=== PATIENT | female | born 1950 | race Caucasian/White ===

== ENCOUNTER 2016-11-02 08:31 | Inpatient (IN) | payer OTHER ==
[2016-09-26 09:02] VITALS: BMI 42.0
--- NOTE | 2016-09-26 09:36 | PAT Medication Instructions ---
Service Date Sep 26, 2016. Current Home Medication List Albuterol Sulfate (Proair Hfa), 2 PUFFS INH QID PRN for SOB/Wheezing Allopurinol (Zyloprim *), 300 MG PO QPM Amoxicillin (Amoxil), 500 MG PO UD PRN for PRIOR TO DENTAL WORK Divalproex Sodium Extended Rel (Depakote Extended Rel *), 1,000 MG PO DHS Fluticasone Prop/Salmeterol (Advair Diskus 500-50 Mcg/Dose), 1 INHA INH BID PRN for SOB/Wheezing Furosemide (Lasix), 40 MG PO QAM Lisinopril (Zestril), 2.5 MG PO QAM Metformin Hcl (Glucophage), 1,000 MG PO QPM Metformin Hcl (Glucophage), 500 MG PO qam/lunch Montelukast Sodium (Singulair), 10 MG PO QAM Oxygen (Oxygen), 2.5 LITERS NA HS Sertraline (Zoloft), 25 MG PO QPM Simvastatin (Zocor), 20 MG PO HS Trazodone Hcl (Trazodone), 100 MG PO HS [oxybutynin], 5 MG PO QAM Medication Instructions For Your Scheduled Surgery - Hold the following medications 48 hours prior to surgery: Metformin Hcl (Glucophage), - Hold the following medications the morning of surgery: Oxybutynin 5 MG PO QAM Furosemide (Lasix), 40 MG PO QAM Lisinopril (Zestril), 2.5 MG PO QAM Amoxicillin (Amoxil), 500 MG PO UD PRN for PRIOR TO DENTAL WORK - Take the following medications the morning of surgery with a sip of water: Montelukast Sodium (Singulair), 10 MG PO QAM Fluticasone Prop/Salmeterol (Advair Diskus 500-50 Mcg/Dose), 1 INHA INH BID PRN for SOB/Wheezing Albuterol Sulfate (Proair Hfa), 2 PUFFS INH QID PRN for SOB/Wheezing (bring with you to hospital on day of surgery) - Take the following medications as scheduled the night before surgery: Oxygen (Oxygen), 2.5 LITERS NA HS Sertraline (Zoloft), 25 MG PO QPM Simvastatin (Zocor), 20 MG PO HS Trazodone Hcl (Trazodone), 100 MG PO HS Fluticasone Prop/Salmeterol (Advair Diskus 500-50 Mcg/Dose), 1 INHA INH BID PRN for SOB/Wheezing Divalproex Sodium Extended Rel (Depakote Extended Rel *), 1,000 MG PO DHS Allopurinol (Zyloprim *), 300 MG PO QPM Albuterol Sulfate (Proair Hfa), 2 PUFFS INH QID PRN for SOB/Wheezing If you have any questions please call us at [phone] or [phone] ( [place]) or [phone]
[2016-09-26 10:15] LABS: COMPLETE YES; EOS % 2.8 %; HEMATOCRIT 42.3 % (37-47); LYMPH ABS # 3.36 K/uL (1.2-3.4); MEAN CELL VOLUME 88.5 fL (80-100); MEAN CORPUSCULAR HEMOGLOBIN 28.2 pg (25-34); MEAN CORPUSCULAR HGB CONC 31.9 g/dl (32-36); MEAN PLATELET VOLUME 9.2 fL (7.4-10.4); MONO % 5.9 %; NEUT % 55.3 %; PLATELET COUNT 252 K/uL (130-400); RED BLOOD COUNT 4.78 M/uL (4.2-5.4)
[2016-09-26 10:23] LABS: INR 0.9 (0.9-1.1); PROTHROMBIN TIME (PATIENT) 9.8 SECONDS (9.0-12.0)
[2016-09-26 10:39] LABS: BUN/CREATININE RATIO 31.2 (10-20); C-REACTIVE PROTEIN 2.88 mg/dl (0-0.29); CALCIUM 9.5 mg/dl (8.5-10.1); CREATININE 0.63 mg/dl (0.60-1.20)
[2016-09-26 11:21] LABS: ESTIMATED AVERAGE GLUCOSE 157 mg/dl; HA1C FLAG Normal (Normal)
--- NOTE | 2016-10-28 01:14 | HISTORY & PHYSICAL EXAMINATION ---
DATE OF ADMISSION: 11/02/2016 CHIEF COMPLAINT: Right knee pain and discomfort. HISTORY OF PRESENT ILLNESS: A 66-year-old female who is now a little over 5 years out from left knee replacement who presents for surgical treatment of her right knee. She has got a long history of right knee pain and discomfort, describes it has gotten worse over the past several years. A very minimal response to conservative care. She is tired of limping. The more she walks, the more she limps. Pain is mostly medial, but somewhat globally. She is tired of conservative care and would like to have her right knee replaced. She is very happy with the left knee. PAST MEDICAL HISTORY: Significant for: 1. Sleep apnea with oxygen use at nighttime. 2. Anxiety/depression. 3. Diabetes. 4. Obesity with a BMI of 42. PAST SURGICAL HISTORY: Include: 1. Left knee replacement done in 09/29/2011. 2. Back surgery by Dr. Friend. ALLERGIES: BACTRIM. CURRENT MEDICINES: Include: 1. Metformin half tablet at breakfast and half tablet at night and hold tablet with supper. Tablets are 1000 mg. 2. Lasix 40 mg a day. 3. Zestril 2.5 mg a day. 4. Singulair 10 mg a day. 5. Allopurinol 300 mg at night. 6. Zoloft 25 mg a day. 7. Depakote 15 mg tablets 2 at bedtime. 8. Trazodone 100 mg at night. 9. Zocor 20 mg at night. 10. ProAir inhaler twice a day. 11. Advair Diskus p.r.n. 12. Oxygen at night time. SOCIAL HISTORY: A 66-year-old female. She is . FAMILY HISTORY: Noncontributory. REVIEW OF SYSTEMS: Significant for diabetes. Denies any current chest pain or shortness of breath. She does use oxygen at night time. She has sleep apnea. PHYSICAL EXAMINATION: GENERAL: Reveals a pleasant elderly female. She looks in reasonably good health. HEENT: Benign. NECK: Supple. No lymphadenopathy. LUNGS: Clear to auscultation. HEART: Regular rate and rhythm. ABDOMEN: Soft, nontender, nondistended. EXTREMITIES: Grossly neurovascularly intact except as follows: Examination of the right knee reveals the patient walks independently with a slight bit of a limp. She has got varus alignment to her knee. She has got bony hypertrophy medially and tenderness over the medial joint line. Range of motion 5-120. No instability. Examination of left knee reveals well-healed incision. Range of motion 0-120. No instability. X-RAYS: X-rays of the right knee revealed advanced right knee medial compartment DJD. She has got near complete loss of medial joint space. She has got osteophytes off the medial femoral condyle and medial tibial plateau. X-rays left knee - well positioned total knee replacement. No signs of problems. No loosening or wear. ASSESSMENT: A 66-year-old white female, 5 years out from a left knee replacement with fairly advanced right knee degenerative joint disease. She has failed conservative treatment and not initiated any further conservative care and would like to have her right knee replaced. PLAN: We will take her to the operating room and do a right total knee replacement. The risks and benefits of this procedure were explained to the patient including but not limited to DVT, PE, , infection, neurological injury, vascular injury, bleeding problem, pain, limited range of motion, stiffness, failure to relieve symptoms, incomplete relief of symptoms, need for further surgery in the future, fracture, leg length inequality, nerve palsy, etc. The patient understands and desires to proceed. Informed consent was obtained. She is planning to be discharged to home using [facility] home health program. She knows to stop her metformin 2 days preop. She will need to use oxygen at night time. MTDD
[2016-11-02] VITALS (8 sets, daily range): BP systolic 116–179; BP diastolic 62–87; PULSE 65–93; TEMP 36.3–36.7; O2SAT 2–97; Ht 157.5 cm; Wt 104.1 kg
[~2016-11-02] VITALS: Ht 157.5 cm; Wt 104.1 kg
[~2016-11-02 08:31] MED LIST: ACETAMINOPHEN 500 MG TAB PO SCH; ADVIN50050 INH; ALBU1AER9 INH; ALL300 PO; AMOX500C3 PO; BUPIVACAINE 0.25% 30 ML VIAL ONE; BUPIVACAINE 0.5 % 5 MG/1 ML PF 10ML VIAL ONE; BUPIVACAINE LIPOSOME 266 MG, BUPIVACAINE/EPINEPHRINE INJ 50 ML, SODIUM CHLORIDE 0.9% PF... INFIL SCH; CEFAZOLIN 2000 MG/60 ML D5W 60 ML IV SCH; DPKSR500 PO; FAMOTIDINE 20 MG TAB PO SCH; FRS/40 PO; GABAPENTIN 300 MG CAP PO SCH; GLC/500 PO; LACTATED RINGER'S 1000ML 1,000 ML IV SCH; LACTATED RINGER'S 1000ML 500 ML IV ONE; LACTATED RINGER'S 1000ML IV SCH; LISI-729 PO; METOCLOPRAMIDE HCL 10 MG TAB PO SCH; MONT1TAB3 PO; OXGN; SCOPOLAMINE 1.5 MG TDSY TD SCH; SERT25TA PO; SIMV20TA2 PO; TRANEXAMIC ACID INJ 1,000 MG in SODIUM CHLORIDE 0.9% 100ML 100 ML IV SCH; TRAZ100T29 PO; oxybutynin PO
--- NOTE | 2016-11-02 09:11 | History & Physical Bridge Note ---
H&P Re-Evaluation Bridge Note: I have examined the patient, reviewed the History & Physical and in the interval since the performance of the History & Physical I have noted the following changes of clinical significance: No changes noted
[2016-11-02] MEDS ORDERED: MEPERIDINE HCL 25 MG/ML CARP IV PRN (10:15)
[2016-11-02] MEDS ORDERED: FENTANYL CITRATE INJ 50 MCG/1 ML 2 ML VIAL IV PRN (10:15)
[2016-11-02] MEDS ORDERED: HYDROmorphone INJ 1 MG/ML SYR IV PRN (10:15)
[2016-11-02] MEDS ORDERED: EpHEDrine SULFATE INJ 50 MG/ML AMP IV PRN (10:15)
[2016-11-02] MEDS ORDERED: ATROPINE SULFATE 0.1 MG/ML 5ML SYR IV PRN (10:15)
[2016-11-02] MEDS ORDERED: LABETALOL HCL IV 5 MG/ML 20ML IV PRN (10:15)
[2016-11-02] MEDS ORDERED: ONDANSETRON INJ 2 MG/ML 2 ML VIAL IV PRN ×2 (10:15→13:00)
[2016-11-02] MEDS ORDERED: MIDAZOLAM HCL 1 MG/ML 2ML VIAL ONE (10:26)
[2016-11-02] MEDS ORDERED: BUPIVACAINE/EPINEPHRINE 0.25% 1:200,000 30 ML VIAL ONE (10:54)
[2016-11-02] MEDS ORDERED: SODIUM CHLORIDE 0.9% PF 50 ML VIAL ONE (10:54)
[2016-11-02] MEDS ORDERED: BACITRACIN 50000 UNIT VIAL ONE (10:54)
[2016-11-02] MEDS ORDERED: BUPIVACAINE LIPOSOME 1/3% 266 MG/20 ML VIAL INFIL ONE (10:54)
[2016-11-02] MEDS ORDERED: PROPOFOL IV EMULSION 10 MG/ML 20 ML VIAL IV ONE (12:05)
[2016-11-02] MEDS ORDERED: LIDOCAINE HCL 2% 2 ML VIAL (20MG/ML) ONE (12:05)
[2016-11-02] MEDS ORDERED: EpHEDrine SULFATE 50MG/5ML SYR ONE (12:06)
--- NOTE | 2016-11-02 12:46 | [facility] Post Operative Brief Note ---
Immediate Operative Summary Operative Date Nov 02, 2016. Pre-Operative Diagnosis Advanced Right Knee Degenerative Joint Disease Post-Operative Diagnosis Advanced Right Knee Degenerative Joint Disease Procedure(s) Performed Right Total Knee Arthroplasty, Cemented Surgeon Dr. Mooney Gluing Machine Operator Surgeon(s) Valdemar Laughlin PA-C Estimated Blood Loss 50 mL Findings Right Knee DJD Fluids (cc crystalloids) 2000 cc Specimens A: Right Knee Bone and Tissue Drains None Anesthesia Spinal Complication(s) None Disposition Recovery Room / PACU
[2016-11-02] MEDS ORDERED: ZOLPIDEM TARTRATE 5 MG TAB PO PRN (13:00)
[2016-11-02] MEDS ORDERED: MoRPHine SULFATE 2 MG/ML CARP IV PRN (13:00)
[2016-11-02] MEDS ORDERED: FLUTICASONE/SALMETEROL (ADVAIR) 500/50 INH 14 PUFF INH PRN (13:00)
[2016-11-02] MEDS ORDERED: GLUCOSE 10 TABS/TUBE PO PRN (13:00)
[2016-11-02] MEDS ORDERED: GLUCOSE 40% GEL 15 GM TUBE PO PRN (13:00)
[2016-11-02] MEDS ORDERED: DEXTROSE 50% 50 ML SYR IV PRN (13:00)
[2016-11-02] MEDS ORDERED: METOCLOPRAMIDE HCL INJ 5 MG/ML 2 ML VIAL IV PRN (13:00)
[2016-11-02] MEDS ORDERED: GLUCAGON FOR INJ 1 MG VIAL SQ PRN (13:00)
[2016-11-02] MEDS ORDERED: ALBUTEROL HFA 8 GM INHALER INH PRN (13:00)
[2016-11-02] MEDS ORDERED: BISACODYL 10 MG SUPP PR PRN (13:00)
[2016-11-02] MEDS ORDERED: MAGNESIUM HYDROXIDE SUSP 30 ML UDC PO PRN (13:00)
[2016-11-02] MEDS ORDERED: ALUMINUM/MAGNESIUM/SIMETH (MAALOX MAX) 30 ML UDC PO PRN (13:00)
--- NOTE | 2016-11-02 13:37 | OPERATIVE REPORT ---
DATE OF OPERATION: 11/02/2016 SURGEON: Pollo Mooney MD RIVETING MACHINE OPERATOR: KASEY Schulte PREOPERATIVE DIAGNOSIS: Right knee degenerative joint disease. POSTOPERATIVE DIAGNOSIS: Same. PROCEDURE PERFORMED: Right cemented posterior stabilized total knee arthroplasty. COMPLICATIONS: None. ESTIMATED BLOOD LOSS: 50 mL. FLUID REPLACEMENT: 2000 mL crystalloid fluid replacement. ANESTHESIA: Spinal with adductor canal block. DRAINS: None. SPECIMENS: Right knee sent for pathology. OPERATIVE INDICATIONS: The patient is a 66-year-old female who is 5 years out from a left knee replacement. She has done well from this side. Over the past several years, she developed increased pain and discomfort in her right knee. She has been unresponsive to conservative care. She elected to proceed with total knee arthroplasty. OPERATIVE FINDINGS: Operative findings revealed advanced right knee DJD. She had grade 4 [id number] disease of the medial compartment as well as the patellofemoral compartment. Lateral compartment was fairly well preserved. She did not have much in the way of bony eburnation, but full cartilage loss. She had a moderate sized joint effusion. OPERATIVE IMPLANTS: Operative implants consisted of: 1. Biomet Vanguard size 60 right posterior stabilized femoral component. 2. Biomet size 63 tibial tray. 3. A 10-mm posterior stabilized polyethylene insert. 4. A 28 x 8 all poly patella. OPERATIVE PROCEDURE: The patient was taken to the operating room, identified and placed on operative table in the supine position. All contact areas were appropriately padded. IV antibiotics were provided by the anesthesia team. A spinal anesthetic and adductor canal block had been provided in the holding area. Theodore catheter was placed in sterile fashion. Right thigh tourniquet was then placed. The right lower extremity was then prepped and draped in usual sterile fashion. The right leg was elevated and exsanguinated with Esmarch and tourniquet was placed at 300 mmHg. An anterior approach to the right knee was then performed through a longitudinal incision centered over the patella. Sharp dissection was carried out through the subcutaneous tissues down to the level of the extensor mechanism. A medial parapatellar arthrotomy incision was made. Some subperiosteal dissection was carried out medially. The fat pad was resected from beneath the patellar tendon. The lateral patellofemoral ligament was released. The patella was everted and knee was flexed. The osteophytes were taken off the distal femur. The ACL and PCL were then released from the distal femur and the tibia subluxated anteriorly. The external tibial alignment jig was then placed in the anterior face of the tibia and adjusted 14-mm medially. Proximal tibial cut was made to remove about 2-3 mm of bone off the most deficient aspect of the medial tibial plateau. Tibia was sized to a size 63. Some osteophytes were removed posteriorly and medially. Attention was then drawn to the femur. The distal femur was entered with a sharp drill bit. Intramedullary canal was suctioned. A right 5-degree valgus cutting guide was placed. Distal femoral cutting block was pinned in place. Distal femoral cut was made to take an additional 3 mm of bone off the distal femur. The femur was then sized to a size 60. This sized almost exactly to a 60. The AP cutting block was pinned parallel to the epicondylar axis, which was 4 degrees of external rotation. The anterior cut, anterior chamfer, posterior cut, and posterior chamfer cuts were made. Box cutting guide was placed and adjusted slightly laterally. The box cut was made. The knee was flexed. The remnants of the medial and lateral meniscus were excised. The osteophytes were taken off the posterior aspect of the femur. Trial femoral component was placed. Tibial tray was pinned in maximum external rotation and drill and stem punch were used to create defect in proximal tibia for the tibial tray. The knee was then trialed and a 10-mm insert fit most appropriately. Attention was then drawn to the patella. The patella was cleaned of all soft tissues. Patellar thickness measured about 20 mm in thickness and it was cut down to 11. It was sized to a size 28 patella. Lug holes were drilled for the 28 patella. Lateral osteophyte was removed. Patella button was placed. Knee was taken through range of motion and the patella tracked nicely with no thumbs test. Attention was then drawn toward placement of the permanent components. All trial components were removed. The bone plug was placed in the distal femur to limit blood loss. A double batch of Palacos G cement was mixed. A right size 60 posterior stabilized femoral component, size 63 tibial tray, a 10-mm posterior stabilized polyethylene insert, and a 28 x 8 all poly patella were then cemented in place. The knee was brought out into full extension until cement hardened. A final cement check was then performed. Pericapsular tissues were injected with a total of 100 mL of a combination of 20 mL of Exparel, 30 mL of normal saline, and 50 mL of 0.25% Marcaine with epinephrine. The patient did receive 1 gram of tranexamic acid. The tourniquet was then let down for final tourniquet time of 50 minutes. Hemostasis was assured with use of electrocautery. The wound was once again irrigated. The extensor mechanism was then closed with a combination of #1 PDS suture and #1 Vicryl suture in a [id number] fashion. Extensor mechanism was checked and found to be intact. The subcutaneous tissues were then closed with 2-0 Dexon suture in a buried interrupted fashion. Skin was closed skin corbin. Leg was then cleaned and dried and a sterile dressing of Xeroform, 4 x 4, sterile cast padding and Seun bandage were applied. The patient then transferred to the recovery room in stable condition. The patient tolerated the procedure well with no complications. All needle and sponge counts were correct at the end of the operation. I attest to the content of the Intraoperative Record and any orders documented therein. Any exceptio ns are noted below.
--- NOTE | 2016-11-02 13:46 | DIAGNOSTIC IMAGING REPORT ---
RIGHT KNEE 1 OR 2 VIEWS ROUTINE CLINICAL HISTORY: Right knee degenerative joint disease. Arthroplasty. COMPARISON: Knee radiographs August 28, 2016. FINDINGS: Alignment of the total right knee arthroplasty is anatomic. No fracture or unexpected radiopaque foreign body. Skin corbin are present. IMPRESSION: Expected findings following total right knee arthroplasty. Electronically signed by: Mervin Rico M.D. 11/02/2016 1:45 PM Dictated Date/Time: 11/02/2016 1:45 PM
[2016-11-02] MEDS: SODIUM CHLORIDE 0.9% 1000ML 1,000 ML IV SCH ×2 (16:11→22:14)
[2016-11-02] MEDS: CHECK SCOPOLAMINE PATCH PLACEMENT SCH (16:14)
[2016-11-02] MEDS: KETOROLAC TROMETHAMINE 15 MG/ML VIAL IV. SCH ×2 (16:15→22:17)
--- NOTE | 2016-11-02 16:56 | Anesthesiology Progress Note ---
Anesthesia Post Op Note Date & Time Nov 02, 2016 at 16:56 Vital Signs Pain Intensity: 0.0 Vital Signs Past 12 Hours Date Time Temp Pulse Resp B/P Pulse Ox O2 Delivery O2 Flow Rate FiO2 11/02/16 16:35 36.6 93 16 122/70 95 Nasal Cannula 2.0 11/02/16 15:30 36.5 75 16 135/85 95 Nasal Cannula 2.0 11/02/16 15:00 36.4 69 16 119/65 95 Nasal Cannula 2.0 11/02/16 14:30 36.7 68 16 116/62 2 Nasal Cannula 11/02/16 14:30 94 Nasal Cannula 2.0 11/02/16 14:00 36.4 64 20 99/45 96 Nasal Cannula 2 11/02/16 13:50 36.4 62 20 98/49 94 Nasal Cannula 2 11/02/16 13:40 63 20 101/54 94 Nasal Cannula 2 11/02/16 13:30 61 20 102/45 93 Nasal Cannula 2 11/02/16 13:20 63 20 107/51 94 Nasal Cannula 2 11/02/16 13:10 63 20 116/54 94 Nasal Cannula 2 11/02/16 13:00 64 20 113/44 96 Nasal Cannula 2 11/02/16 12:50 66 20 110/59 98 Mask 10 11/02/16 12:43 36.4 70 19 121/62 98 Mask 10 11/02/16 09:01 36.7 65 20 163/77 95 Room Air Notes Neuraxial Anesthesia: was administered, sensory block is resolving
[2016-11-02] MEDS: OXYCODONE HCL IR 5 MG TAB (IMMEDIATE RELEASE) PO PRN ×2 (16:58→22:19)
[2016-11-02] MEDS ORDERED: TRANEXAMIC ACID INJ 1,000 MG in SODIUM CHLORIDE 0.9% 100ML 100 ML IV SCH (19:00)
[2016-11-02] MEDS: INSULIN HUMAN REGULAR SC SCH ×2 (19:18→21:20)
[2016-11-02] MEDS: FERROUS GLUCONATE 324 MG TAB PO SCH (19:18)
[2016-11-02] MEDS: CEFAZOLIN IV 2,000 MG in DEXTROSE 5% 50ML 50 ML IV SCH (21:05)
[2016-11-02] MEDS: TAPENTADOL ER 50 MG TABCR PO SCH (21:05)
[2016-11-02] MEDS: DOCUSATE SODIUM 100 MG CAP PO SCH (21:06)
[2016-11-02] MEDS: SERTRALINE HCL 50 MG TAB PO SCH (21:06)
[2016-11-02] MEDS: ASPIRIN 325 MG ECTAB PO SCH (21:06)
[2016-11-02] MEDS: SIMVASTATIN 20 MG TAB PO SCH (21:06)
[2016-11-02] MEDS: ALLOPURINOL 300 MG TAB PO SCH (21:06)
[2016-11-02] MEDS: TRAZODONE HCL 100 MG TAB PO SCH (21:06)
[2016-11-02] MEDS: ACETAMINOPHEN 500 MG TAB PO SCH (22:17)
[2016-11-03] MEDS: CHECK SCOPOLAMINE PATCH PLACEMENT SCH ×3 (00:16→15:44)
[2016-11-03 03:23] VITALS: BP 148/84; PULSE 81; TEMP 36.9; O2SAT 97
[2016-11-03] MEDS: CEFAZOLIN IV 2,000 MG in DEXTROSE 5% 50ML 50 ML IV SCH (04:23)
[2016-11-03] MEDS: KETOROLAC TROMETHAMINE 15 MG/ML VIAL IV. SCH ×4 (04:24→22:09)
[2016-11-03] MEDS: ACETAMINOPHEN 500 MG TAB PO SCH ×3 (05:49→22:09)
[2016-11-03 06:46] LABS: HEMATOCRIT 32.5 % (37-47); MEAN CELL VOLUME 90.5 fL (80-100); MEAN CORPUSCULAR HEMOGLOBIN 28.7 pg (25-34); MEAN CORPUSCULAR HGB CONC 31.7 g/dl (32-36); PLATELET COUNT 238 K/uL (130-400); RED BLOOD COUNT 3.59 M/uL (4.2-5.4); WHITE BLOOD COUNT 9.64 K/uL (4.8-10.8)
[2016-11-03 07:06] VITALS: BP 148/84; TEMP 36.8; O2SAT 94
[2016-11-03 07:19] LABS: BUN/CREATININE RATIO 21.2 (10-20); CALCIUM 8.6 mg/dl (8.5-10.1); CREATININE 0.69 mg/dl (0.60-1.20)
--- NOTE | 2016-11-03 07:40 | PROGRESS NOTE ---
DATE: 11/03/2016 SUBJECTIVE: A 66-year-old white female postop day 1 from right knee replacement. She is doing pretty well. Had a pretty good night. Pain is controlled. Denies any chest pain or shortness of breath. Not feeling dizzy or lightheaded. OBJECTIVE: VITAL SIGNS: Temperature 36.8. Vital signs stable. She has been mildly hypertensive since surgery. PHYSICAL EXAMINATION: GENERAL: Shows a pleasant elderly female. She is lying in bed and using her incentive spirometer when I visited her this morning. EXTREMITIES: Examination of the right leg reveals the dressing to be clean, dry and intact. Leg is well aligned. She can dorsiflex and plantarflex her foot appropriately. NEUROLOGIC: She is neurologically intact. LABORATORY DATA: Hemoglobin 10.3. Hematocrit 32.5. Electrolytes are stable. ASSESSMENT: A 66-year-old white female postop day 1 from right knee replacement, doing pretty well. Pain is controlled. She has been hypertensive, want to check on her meds to make sure she has resumed all. PLAN: 1. DVT prophylaxis including thigh-high TEDs, SCDs, and aspirin twice a day. 2. PT/OT. Weightbearing as tolerated. Right total knee protocol. 3. Pain control. Doing well on the current pain regimen. 4. Hypertension. We will have to check her meds and make sure she is back on all her hypertensive meds. 5. Disposition: Planning to discharge to home with some home health once adequately recovered.
--- NOTE | 2016-11-03 08:08 | Anesthesiology Progress Note ---
Anesthesia Post Op Note Date & Time Nov 03, 2016 at 08:07 Vital Signs Vital Signs Past 12 Hours Date Time Temp Pulse Resp B/P Pulse Ox O2 Delivery O2 Flow Rate FiO2 11/03/16 07:06 36.8 18 148/84 94 Room Air 11/03/16 03:23 36.9 81 16 148/84 97 Nasal Cannula 2.5 11/03/16 00:17 Nasal Cannula 2.5 11/02/16 23:38 36.7 78 16 148/87 97 Nasal Cannula 2.0 Notes Mental Status: alert / awake / arousable, participated in evaluation Pt Amnestic to Procedure: Yes Nausea / Vomiting: adequately controlled Pain: adequately controlled Airway Patency, RR, SpO2: stable & adequate BP & HR: stable & adequate Hydration State: stable & adequate Neuraxial Anesthesia: sensory block resolved Anesthetic Complications: no major complications apparent
[2016-11-03] MEDS: MULTIVITAMIN TAB PO SCH (08:45)
[2016-11-03] MEDS: OXYBUTYNIN CHLORIDE 5 MG TABCR PO SCH (08:45)
[2016-11-03] MEDS: DOCUSATE SODIUM 100 MG CAP PO SCH ×2 (08:45→21:12)
[2016-11-03] MEDS: FERROUS GLUCONATE 324 MG TAB PO SCH ×3 (08:45→17:49)
[2016-11-03] MEDS: PANTOprazole SOD 40 MG TAB PO SCH (08:45)
[2016-11-03] MEDS: FUROSEMIDE 40 MG TAB PO SCH (08:45)
[2016-11-03] MEDS: ASPIRIN 325 MG ECTAB PO SCH ×2 (08:46→21:12)
[2016-11-03] MEDS: MONTELUKAST SOD 10 MG TAB PO SCH (08:46)
[2016-11-03] MEDS: DIVALPROEX 500 MG EXTENDED RELEASE TAB PO SCH (08:46)
[2016-11-03] MEDS: INSULIN HUMAN REGULAR SC SCH ×4 (08:53→21:24)
[2016-11-03] MEDS: TAPENTADOL ER 50 MG TABCR PO SCH ×2 (08:54→21:13)
[2016-11-03] MEDS: SODIUM CHLORIDE 0.9% 1000ML 1,000 ML IV SCH (08:54)
[2016-11-03] MEDS: OXYCODONE HCL IR 5 MG TAB (IMMEDIATE RELEASE) PO PRN ×3 (08:56→21:05)
[2016-11-03] MEDS: LISINOPRIL 2.5 MG TAB PO SCH (10:11)
[2016-11-03 11:19] VITALS: TEMP 36.8
[2016-11-03 16:02] VITALS: BP 152/86; PULSE 80; TEMP 36.9; O2SAT 95
[2016-11-03] MEDS ORDERED: MORP15TA19 PO (20:43)
[2016-11-03] MEDS ORDERED: OXYC-57 PO (20:43)
[2016-11-03] MEDS ORDERED: FRRG PO (20:43)
[2016-11-03] MEDS ORDERED: ASPEC325 PO (20:43)
--- NOTE | 2016-11-03 20:46 | Discharge Instructions ---
Discharge Instructions Date of Service Nov 03, 2016. Admission Reason for Admission: Right Knee Degenerative Joint Disease Discharge Discharge Diagnosis / Problem: Right Knee Replacement Discharge Goals Goal(s): Decrease discomfort, Improve function, Increase independence, Improve disease control, Therapeutic intervention Activity Recommendations Activity Limitations: per Instructions/Follow-up section Weightbearing Status: Right weightbearing . Instructions / Follow-Up Instructions / Follow-Up ACTIVITY RECOMMENDATIONS: Physical Therapy: * You will go to physical therapy three times each week for four to six weeks after your surgery in order to regain your knee range of motion and to retrain your knee to work properly. * It is just as important to make sure you are getting your knee perfectly straight as it is to regain your knee bend. * Taking a pain pill an hour before therapy can help you have a more productive and comfortable therapy session. Home Exercise: * You were shown a series of exercises (heel props, heel slides, etc.) in the hospital. Do these exercises three to four times each day including the exercises you were shown in physical therapy. Walking: * Get up and walk several times each day. For the first four weeks, try not to stand or walk for more than one hour at a time. If you do stand or walk for more than one hour, you will not hurt anything, but your knee and leg will likely swell. * As you feel comfortable, you may change from the walker or crutches to a cane and then to independent walking. MEDICATIONS: New Medicine: * You will likely be taking one or more of these medications: 1. MS Contin - A long-acting pain medication. Take 1 tablet twice a day for the first ten days to decrease your baseline level of pain. 2. Percocet - A quick and shorter-acting pain medication. Take one to two tablets every four to six hours to lessen your pain. 3. Iron Sulfate - Take three times each day for the month after surgery to help you replace the blood lost during surgery. 4. Aspirin - Thins your blood to lessen the chance of forming a blood clot. * The most common side effects of pain medicine and iron are nausea and constipation. If nausea or constipation is too much of a problem or if you have any questions about your new medicines or doses, call [facility] at [phone]. We will try to help you manage these issues. VERY IMPORTANT TO READ AND REVIEW" Pain: * The immediate post-operative period after knee replacement surgery is often quite painful. * You are given a prescription for pain medicine. You should take it, as directed, when you need it, especially before physical therapy and before going to bed. Pain that interferes with sleep is very common and can last several months. * You will likely need pain medicine for the first four to six weeks. It will not stop all of the pain. The pain will lessen and as you feel better, you may change to milder pain medicine such as Tylenol. * The most common side effects of pain medicine are nausea and constipation, so don't take more than you need. SPECIAL CARE INSTRUCTIONS: TEDs/Elastic Stockings: * The white elastic stockings help limit swelling and prevent blood clots from forming in your legs. The more you wear them, the more they work. * Wear them for six weeks after knee replacement surgery and four weeks after partial knee replacement. Prevention of Infection: * Take antibiotics one hour before any dental cleaning, dental work, urological procedure, gastrointestinal procedure or any invasive surgery in order to prevent your new joint from getting infected. * You may get the antibiotics from the doctor performing the procedure or you may call our office at before and we will call in a prescription to the pharmacy of your choice. Things to Watch For: * Drainage from the incision site that occurs more than one week after your surgery. * Severely increased knee/leg pain or swelling. * Increased redness at the incision site. * Fever above 102 degrees Fahrenheit. * Unusual chest pain or shortness of breath. * Unusual pain or burning with urination. Call [facility] at with any of the above problems or if you have any questions about your medicines or recovery. FOLLOW UP VISIT: Make an appointment to see your doctor for approximately two weeks after surgery for a progress check and staple removal by calling the office at . Current Hospital Diet Patient's current hospital diet: Diabetes Type 2 Diet Discharge Diet Recommended Diet: Diabetes Type 2 Diet Procedures Procedures Performed: Right Total Knee Arthroplasty, Cemented Pending Studies Studies pending at discharge: no Laboratory Results Hemoglobin A1c Test 09/26/16 09:50 Range/Units Estimated Average Glucose 157 mg/dl Hemoglobin A1c 7.1 H 4.5-5.6 % Medical Emergencies . Who to Call and When: Medical Emergencies: If at any time you feel your situation is an emergency, please call 911 immediately. . Non-Emergent Contact Non-Emergency issues call your: Surgeon . "Provider Documentation" section prepared by Pollo Mooney. . VTE Core Measure Inpt VTE Proph given/why not?: Other Anticoagulation, T.E.D. Stockings, SCD's
[2016-11-03] MEDS: SIMVASTATIN 20 MG TAB PO SCH (23:12)
[2016-11-03] MEDS: SERTRALINE HCL 50 MG TAB PO SCH (23:12)
[2016-11-03] MEDS: TRAZODONE HCL 100 MG TAB PO SCH (23:14)
[2016-11-03 23:25] VITALS: BP 133/79; PULSE 81; TEMP 36.8; O2SAT 96
[2016-11-04] MEDS: ALLOPURINOL 300 MG TAB PO SCH (00:14)
[2016-11-04] MEDS: CHECK SCOPOLAMINE PATCH PLACEMENT SCH (00:17)
[2016-11-04] MEDS: KETOROLAC TROMETHAMINE 15 MG/ML VIAL IV. SCH ×2 (03:50→09:31)
[2016-11-04] MEDS: ACETAMINOPHEN 500 MG TAB PO SCH (05:54)
[2016-11-04 07:03] VITALS: BP 142/83; PULSE 80; TEMP 37; O2SAT 94
[2016-11-04 07:30] VITALS: O2SAT 91
[2016-11-04] MEDS: DIVALPROEX 500 MG EXTENDED RELEASE TAB PO SCH (07:33)
[2016-11-04] MEDS: LISINOPRIL 2.5 MG TAB PO SCH (07:33)
[2016-11-04] MEDS: FERROUS GLUCONATE 324 MG TAB PO SCH (07:33)
[2016-11-04] MEDS: OXYBUTYNIN CHLORIDE 5 MG TABCR PO SCH (07:34)
[2016-11-04] MEDS: MONTELUKAST SOD 10 MG TAB PO SCH (07:34)
[2016-11-04] MEDS: MULTIVITAMIN TAB PO SCH (07:34)
[2016-11-04] MEDS: PANTOprazole SOD 40 MG TAB PO SCH (07:34)
[2016-11-04] MEDS: INSULIN HUMAN REGULAR SC SCH (07:36)
[2016-11-04] MEDS: DOCUSATE SODIUM 100 MG CAP PO SCH ×2 (07:40→09:31)
[2016-11-04] MEDS: TAPENTADOL ER 50 MG TABCR PO SCH (07:40)
--- NOTE | 2016-11-04 08:46 | PROGRESS NOTE ---
DATE: 11/04/2016 DATE: 11/04/2016. SUBJECTIVE: A 66-year-old white female postop day 2 from a right knee replacement. She is doing pretty well. Pain has been manageable, but waxes and wanes some. Therapy has gone well. Denies any chest pain or shortness of breath. OBJECTIVE: VITAL SIGNS: Temperature 37.7. Vital signs stable. Blood pressure improved since resuming lisinopril. PHYSICAL EXAMINATION: GENERAL: Physical examination reveals a pleasant elderly female. She is sitting up at her bedside and looks pretty comfortable. EXTREMITIES: Examination of the right leg reveals the dressing to be in place. Small amount of bloody drainage. She can dorsiflex and plantarflex her foot appropriately. She is neurologically intact. ASSESSMENT: A 66-year-old white female postop day 2 from right knee replacement, doing pretty well. Pain is reasonably well controlled. PLAN: 1. DVT prophylaxis including thigh-high TEDs, SCDs, and aspirin twice a day. 2. PT/OT. Weightbearing as tolerated. Right total knee protocol. 3. Pain control. Doing pretty well with current pain regimen. 4. Disposition. Plan to discharge to home with some home health after therapy today.
[2016-11-04 09:11] VITALS: O2SAT 85
[2016-11-04 09:27] VITALS: BP 142/83; PULSE 80; TEMP 37; O2SAT 91
[2016-11-04] MEDS: ASPIRIN 325 MG ECTAB PO SCH (09:31)
[2016-11-04] MEDS: FUROSEMIDE 40 MG TAB PO SCH (09:31)
[2016-11-04] MEDS: OXYCODONE HCL IR 5 MG TAB (IMMEDIATE RELEASE) PO PRN (09:35)
--- NOTE | 2016-11-16 09:22 | DISCHARGE SUMMARY ---
ADMITTING PHYSICIAN AND SURGEON: Dr. Mooney. ADMITTING DIAGNOSIS: Right knee degenerative joint disease. SURGERY PERFORMED: Right total knee arthroplasty. SECONDARY DIAGNOSES: Include sleep apnea, anxiety, depression, diabetes, and obesity. CONSULTS: None obtained. HISTORY AND PHYSICAL EXAMINATION: Well documented in the patient's chart. HOSPITAL COURSE: The patient was admitted on 11/02/2016, underwent total knee arthroplasty, tolerated the procedure well. There were no complications. She was transferred to the PACU postoperatively and later to the orthopedic floor for further care. She was given Ancef for antibiotic prophylaxis and JEANNE stockings, SCDs and aspirin for DVT prophylaxis. Her hemoglobin, hematocrit and vital signs were monitored during her hospital stay and remained stable. She developed some postoperative anemia with a hemoglobin down to 10.3, did not require any blood transfusions. There were no complications. By postoperative day 2, she is tolerating a diabetic diet. Pain was controlled with oral pain medicine. She is participating in physical therapy and had no signs or symptoms of deep vein thrombosis. On postoperative day 2, she was discharged home and set up with home health services, given printed discharge instructions including prescriptions for aspirin 325 mg b.i.d., iron supplement, Percocet, continue home medications, continue physical therapy, weightbearing as tolerated, JEANNE stockings, followup within 10-12 days or sooner if there are any problems or concerns.
== END 2016-11-04 10:59 | disposition home health service (06) | DRG 470 ==
LOC: ENRESERVDT → ENRESERVTM → C.ACU 08:31 → C.3E 09:10
PROVIDERS: ADMIT Orthopaedic Surgery Sports Medicine; ATTEND Orthopaedic Surgery Sports Medicine
PROC: 0SRC0J9 Replacement of Right Knee Joint with Synthetic Substitute, Cemented, Open Approach (ICD-10-PCS; principal; 2016-11-02 11:20)
DX: M17.11 Unilateral primary osteoarthritis, right knee (principal); Z68.41 Body mass index [BMI] 40.0-44.9, adult; E66.01 Morbid (severe) obesity due to excess calories; G47.30 Sleep apnea, unspecified; E11.9 Type 2 diabetes mellitus without complications; Z96.652 Presence of left artificial knee joint; I10 Essential (primary) hypertension; M10.9 Gout, unspecified; J44.9 Chronic obstructive pulmonary disease, unspecified; M25.461 Effusion, right knee; F41.9 Anxiety disorder, unspecified; F32.9 Major depressive disorder, single episode, unspecified; Z79.51 Long term (current) use of inhaled steroids; Z79.84 Long term (current) use of oral hypoglycemic drugs; Z79.899 Other long term (current) drug therapy; Z99.81 Dependence on supplemental oxygen; Z86.711 Personal history of pulmonary embolism; Z91.19 Patient's noncompliance with other medical treatment and regimen

== ENCOUNTER 2018-08-01 21:46 | Inpatient (IN) ==
[2018-08-01] MEDS ORDERED: IBUPROFEN 200 MG TAB PO STA (22:03)
[2018-08-01] MEDS ORDERED: SODIUM CHLORIDE 0.9% 1000ML 1,000 ML IV ONE (22:03)
[2018-08-01] MEDS ORDERED: PIPERACILL/TAZOBAC CONSULT ACTIVE PRN (22:03)
[2018-08-01] MEDS ORDERED: PIPERACILLIN/TAZOBACTAM 4.5 GM/120 ML BAG IV ONE (22:03)
[2018-08-01 22:27] LABS: Basophils # (auto) 0.02 K/uL (0-0.2); Basophils % (auto) 0.1 %; Hematocrit (blood only) 42.6 % (37-47); Hemoglobin 13.7 g/dL (12.0-16.0); Immature Granulocytes # (auto) 0.31 K/uL (0.00-0.02); Immature Granulocytes % (auto) 2.2 %; Lymphocytes # (auto) 1.33 K/uL (1.2-3.4); Lymphocytes % (auto) 9.2 %; Mean Corpuscular Hgb Conc 32.2 g/dL (32-36); Mean Corpuscular Volume 93.6 fL (80-100); Mean Platelet Volume 9.7 fL (7.4-10.4); Monocytes # (auto) 1.75 K/uL (0.11-0.59); Monocytes % (auto) 12.2 %; Neutrophils # (auto) 10.98 K/uL (1.4-6.5); Neutrophils % (auto) 76.3 %; Platelet Count 272 K/uL (130-400); RDW Coefficient of Variation 16.2 % (11.5-14.5); Red Blood Count 4.55 M/uL (4.2-5.4); White Blood Count 14.39 K/uL (4.8-10.8)
--- NOTE | 2018-08-01 22:32 | XRay Report ---
XR chest 1V portable HISTORY: 68 years-old Female Sepsis acute sepsis COMPARISON: Chest radiograph 07/12/2015 TECHNIQUE: Portable AP view of the chest FINDINGS: Cardiac silhouette is enlarged, unchanged. Pulmonary vascular congestion without overt pulmonary sylvia a. Moderate right hemidiaphragmatic elevation with subsegmental bibasilar opacities. No pneumothorax or large pleural effusion. Degenerative changes of the shoulders and spine. IMPRESSION: 1. Cardiomegaly with pulmonary vascular congestion. 2. Moderate right hemidiaphragmatic elevation. 3. Bibasilar opacities favor atelectasis. The above report was generated using voice recognition software. It may contain grammatical, syntax o r spelling errors. Electronically signed by: Papo Sykes M.D. 08/01/2018 10:30 PM
[2018-08-01 22:35] LABS: Appearance Urine Clear (Clear); Bacteria Urine Automated Negative (Negative); Bilirubin Urine Negative (Negative); Cast Urine Automated 0 /lpf (0-5); Color Urine Yellow; Epithelial Cell Urine Auto 20-30 /lpf (0-5); Glucose Urine UA Trace (Negative); Ketones Urine Trace (Negative); Leukocyte Esterase Urine Negative (Negative); Nitrite Urine Negative (Negative); Protein Urine 3+ (Negative); Urobilinogen Urine Negative (Negative)
[2018-08-01 22:44] LABS: Albumin Level 3.7 gm/dl (3.4-5.0); BUN Creatinine Ratio 24.4 (10-20); Calcium 9.6 mg/dl (8.5-10.1); Creatinine Clr Calc Pharmacy 69.2 ml/min; Est GFR (African American) 79.3; Est GFR (Non-African American) 68.4; Potassium 4.1 mmol/L (3.5-5.1)
--- NOTE | 2018-08-01 22:44 | CT Scan Report ---
CT head/brain wo con CLINICAL HISTORY: 68 years-old Female with eval for altered loc. Acutely altered mental status TECHNIQUE: Multiple axial CT images of the head were obtained without contrast. A dose lowering tech nique was utilized adhering to the principles of ALARA. CT DOSE: 537.48 mGy.cm COMPARISON: And CT maxillofacial 07/15/2015. FINDINGS: No acute intracranial hemorrhage, midline shift, intracranial mass, hydrocephalus, territorial ischem ia or abnormal extra-axial collection. Age-related involutional changes. Ill-defined hypodensities ab out the white matter suggest chronic microvascular ischemic changes. Cerebral vascular calcifications are noted. Streak artifact from right ear ring. The calvarium is intact. Small right mastoid effusion. Left mastoid air cells are clear. Mild mucosa l thickening of the right maxillary sinus. The remaining paranasal sinuses are generally clear. Soft tissues and orbits are unremarkable. Prior bilateral cataract repair. IMPRESSION: No acute intracranial abnormality. The above report was generated using voice recognition software. It may contain grammatical, syntax o r spelling errors. Electronically signed by: Papo Sykes M.D. 08/01/2018 10:42 PM
[2018-08-01 22:47] LABS: Albumin Globulin Ratio 0.8 (0.9-2); Bilirubin,Total 0.3 mg/dl (0.2-1); Globulin 4.4 gm/dl (2.5-4.0); Total Protein 8.1 gm/dl (6.4-8.2)
[2018-08-01] MEDS ORDERED: OSELTAMIVIR PHOSPHATE 75 MG CAP PO STA (23:17)
--- NOTE | 2018-08-02 00:34 | Emergency Department Note ---
Entered by Don Worrell acting as a scribe for History of Present Illness General Chief complaint: Altered Mental Status Time Seen by Provider: 08/01/18 21:52 Source: patient, family and other (nursing staff) History of Present Illness Onset (ago): hour(s) (few hours ago) Location: head Pain Consistency: + intermittent Quality: + other (AMS) Associated symptoms: + denies other symptoms (abdominal pain, diarrhea, urinary symptoms), + cough, + headaches, + nausea/vomiting, + shortness of breath, + weakness and + other (confused, fever) The patient is a 68 year old female who presents to the Emergency Room with complaints of an intermittent altered mental status beginning a few hours ago. The patient's states the patient needed to use the restroom and on her way back to the chair, she fell to the ground weak. He reports she has been very weak and had a cough. The notes she was also very confused this evening. The patient states she has been short of breath for the past few days, and she has a history of COPD. She reports she may have had a fever. The patient notes she has had a cough that is productive with white phlegm. She states she was placed on Prednisone and amoxicillin by her PCP yesterday. The patient reports she had intermittent headaches today, and she had a flu shot. She denies abdominal pain, nausea, vomiting, diarrhea, and urinary symptoms. Nursing staff reports the patient was seeing numbers that were not there, and she was alert to person, place, and time. They note she had a fever of 101.8 and is diabetic. Nursing staff states her bedside BSG was 187, and she may have taken Tylenol. She denies a history of a PE or fluid on her legs or lungs. Home Medications Home Medications Medication Instructions Recorded Confirmed Type albuterol sulfate [ProAir HFA] 2 puff INHALATION Q6H PRN 08/01/18 08/01/18 History allopurinol 300 mg PO BID 08/01/18 08/01/18 History amoxicillin-pot clavulanate 1 tab PO BID 08/01/18 08/01/18 History divalproex 1,000 mg PO HS 08/01/18 08/01/18 History furosemide 40 mg PO DAILY 08/01/18 08/01/18 History lisinopril 2.5 mg PO DAILY 08/01/18 08/01/18 History metformin 1,000 mg PO BID 08/01/18 08/01/18 History montelukast 10 mg PO DAILY 08/01/18 08/01/18 History oxybutynin chloride 5 mg PO DAILY 08/01/18 08/01/18 History prednisone 20 mg PO UD 08/01/18 08/01/18 History sertraline 25 mg PO DAILY 08/01/18 08/01/18 History simvastatin 40 mg PO HS 08/01/18 08/01/18 History trazodone 100 mg PO HS 08/01/18 08/01/18 History aspirin 81 mg PO DAILY 08/02/18 08/02/18 History fluticasone-salmeterol [Advair 1 inh INHALATION Q12H 08/02/18 08/02/18 History Diskus] glipizide 5 mg PO DAILYBB 08/02/18 08/02/18 History ipratropium-albuterol 3 ml INHALATION QID 08/02/18 08/02/18 History Allergies Allergy/AdvReac Type Severity Reaction Status Date / Time Bactrim Allergy Unknown . Verified 11/02/16 09:17 Sulfa (Sulfonamide Allergy Unknown "SULFA = Verified 08/01/18 22:26 Antibiotics) HIVES" sulfamethoxazole Allergy Unknown . Verified 08/01/18 22:26 trimethoprim Allergy Unknown . Verified 08/01/18 22:26 Past Med/Surg History Medical History Depression (Chronic) Gout (Chronic) Dyslipidemia (Chronic) HTN (hypertension) (Chronic) Diabetes mellitus (Chronic) Restrictive airway disease (Chronic) AUREA on CPAP (Chronic) Surgical History History of hysterectomy (Chronic) History of total left knee replacement (Chronic) Family History Other Family history non-contributory Social History Current Living Situation: Spouse Other Information That Helps Us Care for You: No Feels Safe at Home: Yes Safety Concerns: Feels Safe At This Time Smoking Status: Never smoker Hx Alcohol Use: No Hx Substance Use: No Beliefs That Will Affect Care: None Preferred Language: [place] Communication Ability: Effective Machine Chain Maker Required: No Review of Systems See HPI for pertinent positives & negatives. and A total of 10 systems reviewed and were otherwise negative Physical Exam Vital Signs Vital Signs - 24 hr 08/01/18 21:59 08/01/18 22:29 08/01/18 22:43 Temperature 38.5 C H Temperature Source Oral Sepsis Recent Fever Within 48 Hours Yes Sepsis New/Unexplained Change in Mental Status Yes Sepsis Action Taken by Nursing Physician Notified Pulse Rate 114 H Pulse Rate [Right Finger] 110 H Pulse Rhythm Regular Pulse Rhythm [Right Finger] Regular Pulse Strength Normal Pulse Strength [Right Finger] Normal Respiratory Rate 22 22 Respiratory Effort / Characteristics Non-Labored Spontaneous Non-Labored Spontaneous Respiratory Depth Normal Normal Respiratory Pattern Regular Blood Pressure 201/119 H Blood Pressure [Right Arm] 169/110 H Blood Pressure Mean 146 Blood Pressure Mean [Right Arm] 129 Pulse Oximetry 90 97 95 Oxygen Delivery Method Room Air Nasal Cannula Nasal Cannula Oxygen Flow Rate 3 3 08/02/18 00:05 08/02/18 00:50 Temperature 37.6 C H 36.7 C Temperature Source Oral Oral Sepsis Recent Fever Within 48 Hours Sepsis New/Unexplained Change in Mental Status Sepsis Action Taken by Nursing Pulse Rate Pulse Rate [Right Finger] 102 H 97 H Pulse Rhythm Pulse Rhythm [Right Finger] Regular Pulse Strength Pulse Strength [Right Finger] Respiratory Rate 22 24 Respiratory Effort / Characteristics Non-Labored Spontaneous Respiratory Depth Normal Respiratory Pattern Blood Pressure Blood Pressure [Right Arm] 122/63 133/80 Blood Pressure Mean Blood Pressure Mean [Right Arm] 82 97 Pulse Oximetry 92 92 Oxygen Delivery Method Nasal Cannula Nasal Cannula Oxygen Flow Rate 3 3 General: Non-ill appearing older female, frequent cough, mildly tachypneic. HEENT: Normal cephalic atraumatic. Pupils are equal round and reactive to light. Extraocular movements are intact. Oropharynx is pink with moist mucous membranes. No swelling of the mouth lips or tongue. Neck: Supple with a midline trachea. No meningeal signs or stiffness, no JVD or bruits. No Stridor. Chest: Clear to auscultation bilaterally. No wheezes or rhonchi. No increased work of breathing. Heart: Tachycardic rate and regular rhythm. Abdomen: Soft nontender, nondistended without rebound guarding or rigidity. Extremities: No cyanosis clubbing or edema. No calf tenderness or assymetry Spine/Back. Non tender to palpation. No CVA tenderness Skin: Good turgor without rashes. Warm to touch. Neurologic exam: Cranial nerves two through 12 are intact. Motor and sensation are intact and symmetrical throughout. Course 2151: Past medical records reviewed. The patient was evaluated in room C12B, and a complete history and physical examination were performed. 2314: I reevaluated the patient and discussed the findings with her. She verbalized agreement to a hospitalist evaluation and the treatment plan. The patient will be evaluated for further management and care. 2321: I reviewed the patient's case with Dr. Loly Terrazas Hospitalist. He will evaluate the patient for further management. Administered Medications Discontinued Medications Piperacillin Sod/Tazobactam Sod (Zosyn) 4.5 gm in 120 mls @ 240 mls/hr IV NOW ONE Stop: 08/01/18 22:32 Last Infusion: 08/01/18 23:26 Dose: 0 mls/hr Admin: 08/01/18 22:38 Dose: 240 mls/hr Sodium Chloride (Nss 1000ml) 1,000 mls @ 999 mls/hr IV .Q1H1M ONE Stop: 08/01/18 23:03 Last Infusion: 08/01/18 23:40 Dose: 0 mls/hr Admin: 08/01/18 22:38 Dose: 999 mls/hr Ibuprofen (Advil) 400 mg PO NOW STA Stop: 08/01/18 22:04 Last Admin: 08/01/18 22:38 Dose: 400 mg Oseltamivir Phosphate (Tamiflu) 75 mg PO NOW STA Stop: 08/01/18 23:18 Last Admin: 08/01/18 23:25 Dose: 75 mg Medical Decision Making Differential Diagnosis Differential Diagnosis includes:pneumonia, sepsis, influenza, electrolyte or metabolic abnormalities Medical Records Attestation: I reviewed the patient's medical records. Home Medications Current Medication List: was personally reviewed by me Laboratory Data Attestation: I reviewed the patient's lab results. Result diagrams: 08/01/18 22:15 08/01/18 22:15 Lab Results 08/01/18 08/01/18 08/01/18 Range/Units 21:55 22:14 22:15 WBC 14.39 H (4.8-10.8) K/uL RBC 4.55 (4.2-5.4) M/uL Hgb 13.7 (12.0-16.0) g/dL Hct 42.6 (37-47) % MCV 93.6 (80-100) fL MCH 30.1 (25-34) pg MCHC 32.2 (32-36) g/dL RDW Std Deviation 56.0 H (36.4-46.3) fL RDW Coeff of Yahaira 16.2 H (11.5-14.5) % Plt Count 272 (130-400) K/uL MPV 9.7 (7.4-10.4) fL Immature Gran % (Auto) 2.2 % Neut % (Auto) 76.3 % Lymph % (Auto) 9.2 % [place] % (Auto) 12.2 % Eos % (Auto) 0.0 % Baso % (Auto) 0.1 % Immature Gran # (Auto) 0.31 H (0.00-0.02) K/uL Neut # (Auto) 10.98 H (1.4-6.5) K/uL Lymph # (Auto) 1.33 (1.2-3.4) K/uL [place] # (Auto) 1.75 H (0.11-0.59) K/uL Eos # (Auto) 0.00 (0-0.5) K/uL Baso # (Auto) 0.02 (0-0.2) K/uL PT INR APTT PTT Ratio Sodium (136-145) mmol/L Potassium (3.5-5.1) mmol/L Chloride (98-107) mmol/L Carbon Dioxide (21-32) mmol/L Anion Gap (3-11) BUN (7-18) mg/dl Creatinine (0.6-1.2) mg/dl Est Cr Clr Drug Dosing ml/min Est GFR ( Amer) Est GFR (Non-Af Amer) BUN/Creatinine Ratio (10-20) Glucose (70-99) mg/dl POC Glucose 187 H (70-99) POC Lactic Acid Jefe 2.87 H (0.90-1.70) mmol/L Calcium (8.5-10.1) mg/dl Total Bilirubin (0.2-1) mg/dl AST (15-37) U/L ALT (12-78) U/L Alkaline Phosphatase (45-117) U/L Total Protein (6.4-8.2) gm/dl Albumin (3.4-5.0) gm/dl Globulin (2.5-4.0) gm/dl Albumin/Globulin Ratio (0.9-2) Urine Color Urine Appearance (Clear) Urine pH (4.5-7.5) Ur Specific [place] (1.000-1.030) Urine Protein (Negative) Urine Glucose (UA) (Negative) Urine Ketones (Negative) Urine Blood (Negative) Urine Nitrite (Negative) Urine Bilirubin (Negative) Urine Urobilinogen (Negative) Ur Leukocyte Esterase (Negative) Urine WBC (Auto) (0-5) /hpf Urine RBC (Auto) (0-4) /hpf U Hyaline Cast (Auto) (0-5) /lpf U Epithel Cells (Auto) (0-5) /lpf Urine Bacteria (Auto) (Negative) Influenza Type A Ag (Neg) Influenza Type B Ag (Neg) 08/01/18 08/01/18 08/01/18 Range/Units 22:15 22:15 22:23 WBC (4.8-10.8) K/uL RBC (4.2-5.4) M/uL Hgb (12.0-16.0) g/dL Hct (37-47) % MCV (80-100) fL MCH (25-34) pg MCHC (32-36) g/dL RDW Std Deviation (36.4-46.3) fL RDW Coeff of Yahaira (11.5-14.5) % Plt Count (130-400) K/uL MPV (7.4-10.4) fL Immature Gran % (Auto) % Neut % (Auto) % Lymph % (Auto) % [place] % (Auto) % Eos % (Auto) % Baso % (Auto) % Immature Gran # (Auto) (0.00-0.02) K/uL Neut # (Auto) (1.4-6.5) K/uL Lymph # (Auto) (1.2-3.4) K/uL [place] # (Auto) (0.11-0.59) K/uL Eos # (Auto) (0-0.5) K/uL Baso # (Auto) (0-0.2) K/uL PT Cancelled INR Cancelled APTT Cancelled PTT Ratio Cancelled Sodium 135 L (136-145) mmol/L Potassium 4.1 (3.5-5.1) mmol/L Chloride 97 L (98-107) mmol/L Carbon Dioxide 28 (21-32) mmol/L Anion Gap 10.0 (3-11) BUN 21 H (7-18) mg/dl Creatinine 0.86 (0.6-1.2) mg/dl Est Cr Clr Drug Dosing 69.2 ml/min Est GFR ( Amer) 79.3 Est GFR (Non-Af Amer) 68.4 BUN/Creatinine Ratio 24.4 H (10-20) Glucose 178 H (70-99) mg/dl POC Glucose (70-99) POC Lactic Acid Jefe (0.90-1.70) mmol/L Calcium 9.6 (8.5-10.1) mg/dl Total Bilirubin 0.3 (0.2-1) mg/dl AST 19 (15-37) U/L ALT 25 (12-78) U/L Alkaline Phosphatase 80 (45-117) U/L Total Protein 8.1 (6.4-8.2) gm/dl Albumin 3.7 (3.4-5.0) gm/dl Globulin 4.4 H (2.5-4.0) gm/dl Albumin/Globulin Ratio 0.8 L (0.9-2) Urine Color Yellow Urine Appearance Clear (Clear) Urine pH 6.0 (4.5-7.5) Ur Specific [place] 1.030 (1.000-1.030) Urine Protein 3+ H (Negative) Urine Glucose (UA) Trace H (Negative) Urine Ketones Trace H (Negative) Urine Blood Negative (Negative) Urine Nitrite Negative (Negative) Urine Bilirubin Negative (Negative) Urine Urobilinogen Negative (Negative) Ur Leukocyte Esterase Negative (Negative) Urine WBC (Auto) 1-5 (0-5) /hpf Urine RBC (Auto) 0-4 (0-4) /hpf U Hyaline Cast (Auto) 0 (0-5) /lpf U Epithel Cells (Auto) 20-30 H (0-5) /lpf Urine Bacteria (Auto) Negative (Negative) Influenza Type A Ag (Neg) Influenza Type B Ag (Neg) 08/01/18 Range/Units 22:28 WBC (4.8-10.8) K/uL RBC (4.2-5.4) M/uL Hgb (12.0-16.0) g/dL Hct (37-47) % MCV (80-100) fL MCH (25-34) pg MCHC (32-36) g/dL RDW Std Deviation (36.4-46.3) fL RDW Coeff of Yahaira (11.5-14.5) % Plt Count (130-400) K/uL MPV (7.4-10.4) fL Immature Gran % (Auto) % Neut % (Auto) % Lymph % (Auto) % [place] % (Auto) % Eos % (Auto) % Baso % (Auto) % Immature Gran # (Auto) (0.00-0.02) K/uL Neut # (Auto) (1.4-6.5) K/uL Lymph # (Auto) (1.2-3.4) K/uL [place] # (Auto) (0.11-0.59) K/uL Eos # (Auto) (0-0.5) K/uL Baso # (Auto) (0-0.2) K/uL PT INR APTT PTT Ratio Sodium (136-145) mmol/L Potassium (3.5-5.1) mmol/L Chloride (98-107) mmol/L Carbon Dioxide (21-32) mmol/L Anion Gap (3-11) BUN (7-18) mg/dl Creatinine (0.6-1.2) mg/dl Est Cr Clr Drug Dosing ml/min Est GFR ( Amer) Est GFR (Non-Af Amer) BUN/Creatinine Ratio (10-20) Glucose (70-99) mg/dl POC Glucose (70-99) POC Lactic Acid Jefe (0.90-1.70) mmol/L Calcium (8.5-10.1) mg/dl Total Bilirubin (0.2-1) mg/dl AST (15-37) U/L ALT (12-78) U/L Alkaline Phosphatase (45-117) U/L Total Protein (6.4-8.2) gm/dl Albumin (3.4-5.0) gm/dl Globulin (2.5-4.0) gm/dl Albumin/Globulin Ratio (0.9-2) Urine Color Urine Appearance (Clear) Urine pH (4.5-7.5) Ur Specific [place] (1.000-1.030) Urine Protein (Negative) Urine Glucose (UA) (Negative) Urine Ketones (Negative) Urine Blood (Negative) Urine Nitrite (Negative) Urine Bilirubin (Negative) Urine Urobilinogen (Negative) Ur Leukocyte Esterase (Negative) Urine WBC (Auto) (0-5) /hpf Urine RBC (Auto) (0-4) /hpf U Hyaline Cast (Auto) (0-5) /lpf U Epithel Cells (Auto) (0-5) /lpf Urine Bacteria (Auto) (Negative) Influenza Type A Ag Pos for Influ A A* (Neg) Influenza Type B Ag Neg for Influ B (Neg) Imaging Data Radiologist's Impression: Radiology results as stated below per my review and the radiologist's interpretation: XR chest 1V portable HISTORY: 68 years-old Female Sepsis acute sepsis COMPARISON: Chest radiograph 07/12/2015 TECHNIQUE: Portable AP view of the chest FINDINGS: Cardiac silhouette is enlarged, unchanged. Pulmonary vascular congestion without overt pulmonary edema. Moderate right hemidiaphragmatic elevation with subsegmental bibasilar opacities. No pneumothorax or large pleural effusion. Degenerative changes of the shoulders and spine. IMPRESSION: 1. Cardiomegaly with pulmonary vascular congestion. 2. Moderate right hemidiaphragmatic elevation. 3. Bibasilar opacities favor atelectasis. The above report was generated using voice recognition software. It may contain grammatical, syntax or spelling errors. Electronically signed by: Papo Sykes M.D. 08/01/2018 10:[address] head/brain wo con CLINICAL HISTORY: 68 years-old Female with eval for altered loc. Acutely altered mental status TECHNIQUE: Multiple axial CT images of the head were obtained without contrast. A dose lowering technique was utilized adhering to the principles of ALARA. CT DOSE: 537.48 mGy.cm COMPARISON: And CT maxillofacial 07/15/2015. FINDINGS: No acute intracranial hemorrhage, midline shift, intracranial mass, hydrocephalus, territorial ischemia or abnormal extra-axial collection. Age- related involutional changes. Ill-defined hypodensities about the white matter suggest chronic microvascular ischemic changes. Cerebral vascular calcifications are noted. Streak artifact from right ear ring. The calvarium is intact. Small right mastoid effusion. Left mastoid air cells are clear. Mild mucosal thickening of the right maxillary sinus. The remaining paranasal sinuses are generally clear. Soft tissues and orbits are unremarkable. Prior bilateral cataract repair. IMPRESSION: No acute intracranial abnormality. The above report was generated using voice recognition software. It may contain grammatical, syntax or spelling errors. Electronically signed by: Papo Sykes M.D. 08/01/2018 10:42 PM ECG Data Attestation: I personally reviewed and interpreted this ECG as follows: Indication: altered mental status Rate (beats per minute): 111 Rhythm: sinus tachycardia Findings: + other (nonspecific-T wave an) and + left axis deviation; no acute ischemic change Comparison ECG Date: from (09/26/2016) Change: the following changes noted Additional Comments: Rate has increased Blood Pressure Blood Pressure Findings: Normal blood pressure Blood Pressure Disposition: did not require urgent referral MDM Narrative This patient comes in as described above. She was placed in room C 12. She is here for treatment and evaluation of fever cough and altered mental status. She was confused earlier but she seemed to be doing better now. She was started on antibiotics yesterday and she has a history of COPD. She was hypertensive here but febrile and tachycardic. IV access was established she was given ibuprofen as she had taken acetaminophen prior to arrival. Multiple blood testing was obtained. chest x-ray was obtained. EKG was obtained and there is nothing to suggest acute coronary syndrome. influenza was positive .I think she may also have a pneumonia as well in the right base. She has no significant electrolyte or metabolic abnormalities. She has nothing to suggest acute cardiac event or significant CHF at this point. she was given IV Zosyn empirically as well as Tamiflu p.o. and I do think needs to be admitted/observe for further inpatient treatment and evaluation. Impression & Plan Sepsis, Influenza, Pneumonia Discharge Plan Visit Data Chief Complaint: Altered Mental Status ED Provider: Luis Love Discharge Problem: Sepsis, Influenza, Pneumonia Patient Disposition: Being Evaluated by Hospitalist Discharge Instructions Interventions: ED Discharge Assessment Last Done: 08/02/18 00:40 Sepsis Evaluation Sepsis screening result: Possible Severe Sepsis Risk Current stage of sepsis: sepsis Focused Exam Vital Signs Temp Pulse Pulse Resp BP BP Pulse Ox 08/02/18 00:50 36.7 C 97 H 24 133/80 92 08/02/18 00:05 37.6 C H 102 H 22 122/63 92 08/01/18 22:43 110 H 22 169/110 H 95 08/01/18 22:29 97 08/01/18 21:59 38.5 C H 114 H 22 201/119 H 90 The scribe's documentation has been prepared under my direction and personally reviewed by me in its entirety. I confirm that the note above accurately reflects all work, treatment, procedures, and medical decision making performed by me.
--- NOTE | 2018-08-02 00:49 | History and Physical Report ---
DATE OF ADMISSION: 08/01/2018 CHIEF COMPLAINT: Shortness of breath and fever. HISTORY OF PRESENT ILLNESS: This is a 68-year-old female with past medical history significant for type 2 diabetes; gout; hyperlipidemia; goiter; COPD, severe, on home oxygen; hypertension; obesity; sleep apnea; major depression; lumbar spinal stenosis. Presents with shortness of breath and fever, says it started on Sunday, and she is coughing up yellow phlegm, feeling very short of breath. Walking few distances is making her short of breath. She could not sleep well because of shortness of breath. Appetite is not that great for the last few days. Denies any chest pain. No headaches, has some runny nose, feels congested in the chest. No nausea, no vomiting, no abdominal pain, no diarrhea or constipation, no bloody micturition, no black stools or blood in the stools. No swelling of the legs. She went to family doctor yesterday and was prescribed prednisone and Augmentin, but it is not helping, so she came to the ER. ALLERGIES: BACTRIM. PAST MEDICAL HISTORY: As mentioned above. PAST SURGICAL HISTORY: Lumbar laminectomy, cataract surgeries, total abdominal hysterectomy with removal of the tubes, left total knee replacement. MEDICATIONS: Currently patient is on DuoNebs 4 times daily, Augmentin 875 mg 1 tablet b.i.d., prednisone 40 mg daily for 5 days, started yesterday, Zocor 40 mg tablet daily, Depakote 100 mg daily, metformin 100 mg b.i.d., lisinopril 2.5 mg p.o. daily, Toviaz 8 mg daily, Advair Diskus 250/50 mcg inhalation b.i.d., Lasix 40 mg daily, allopurinol 300 mg b.i.d., Singulair 10 mg daily, Zoloft 25 mg daily, trazodone 100 mg p.o. at bedtime, aspirin 81 mg p.o. daily, albuterol ProAir 2 puffs 4 times daily as needed, glipizide XL 5 mg p.o. daily. FAMILY HISTORY: Significant for father had prostate cancer in 60s. Mother at age 92. Mother had history of stroke, diabetes. Brother had prostate cancer, another brother has kidney cancer, hypertension. SOCIAL HISTORY: , lives with her . No smoking history. No alcohol use, no drug use. REVIEW OF SYMPTOMS: As per HPI. Rest of the review of systems negative. PHYSICAL EXAMINATION: GENERAL: The patient is obese, not in acute distress. VITAL SIGNS: Temperature 37.6, T-max is 38.5, pulse 102, respiratory rate 22, blood pressure 122/63, oxygen 92% on 3 liters. HEENT: No pallor, no icterus. Pupils equal, round, and reactive to light. NECK: No JVD, no neck masses, no carotid bruits. CARDIOVASCULAR: S1, S2 heard. Tachycardia. No murmurs. RESPIRATORY SYSTEM: Normal AP diameter. No accessory muscle use. Bilateral rhonchi heard. ABDOMEN: Soft, bowel sounds present. Nontender. No distention. CENTRAL NERVOUS SYSTEM: Cranial nerves II-XII grossly intact, nonfocal. EXTREMITIES: No edema, no erythema. LABORATORY DATA: WBC 14, hemoglobin 13.7, hematocrit 42.6, platelets 272. Sodium 135, potassium 4.1, chloride 97, bicarbonate 28, BUN 21, creatinine 0.8, serum glucose 178. Point of care lactic acid 2.8, calcium 9.6, total bilirubin 0.3, AST 19, ALT 25, alkaline phosphatase 80. Urinalysis, trace protein and ketones. Influenza A positive. IMAGING DATA: Chest x-ray, bibasilar opacities. CT of the head, no acute findings. EKG: Sinus tachycardia at a rate of 111, nonspecific T-wave abnormalities, no acute ST changes seen. ASSESSMENT AND PLAN: A 68-year-old female who presents with shortness of breath and cough and found to be Influenza A positive. 1. Flu positive. Influenza A positive. We are starting on IV fluids and Tamiflu. Monitor in the hospital. 2. Chronic obstructive pulmonary disease exacerbation secondary to above. bibasilar opacities, possible atelectasis versus pneumonia. Placed on IV Solu-Medrol 40 mg t.i.d., DuoNebs q. 6 hours around the clock and p.r.n. oxygen. And Levaquin. Follow the sputum cultures and blood cultures. 3. Lactic acid elevated. Follow the repeat lactic acids. Monitor on the tele floor. 4. History of sleep apnea on CPAP at bedtime. 5. Diabetes. Hold home p.o. medications, Glipizide and Metformin. Placed on Lantus insulin sliding scale, glycemic pharmacy consult. 6. Hypertension. Continue lisinopril. Hold Lasix. Patient is getting fluids. Monitor for any fluid overload. 7. Gout, continue allopurinol. 8. Hyperlipidemia. Continue statin. 9. Depression. Continue Zoloft. 10. Deep venous thrombosis prophylaxis. Heparin subcutaneously. DISPOSITION: Admit to tele floor. Expect to discharge home and follow with her family doctor. Level 1 full code. MTDD
[2018-08-02] MEDS ORDERED: NITROGLYCERIN SL 0.4 MG/TAB TAB SL PRN (01:01)
[2018-08-02] MEDS ORDERED: ONDANSETRON INJ 2 MG/ML 2 ML VIAL IV PRN (01:01)
[2018-08-02] MEDS ORDERED: INSULIN GLARGINE SOLOSTAR 100 UNITS/ML 3 ML PEN SC SCH ×2 (01:01→01:30)
[2018-08-02] MEDS ORDERED: ALBUTEROL HFA 8 GM INHALER INH PRN (01:01)
[2018-08-02] MEDS ORDERED: ALBUT/IPRATROP 3MG/0.5MG NEB 3 ML VIAL NEB PRN (01:01)
[2018-08-02] MEDS ORDERED: ACETAMINOPHEN 325 MG TAB PO PRN (01:01)
[2018-08-02] MEDS ORDERED: LEVOFLOXACIN CONSULT ACTIVE PRN (01:10)
[2018-08-02] MEDS ORDERED: PHARMACY GLYCEMIC MGMT CONSULT PRN (01:16)
[2018-08-02] MEDS ORDERED: TAMIFLU PHARMACY CONSULT IN PROGRESS PRN (01:20)
[2018-08-02] MEDS ORDERED: INSULIN ASPART 100 UNITS/ML 3 ML PEN SC SCH (01:30)
[2018-08-02] MEDS ORDERED: GUAIFENESIN/CODEINE 100MG/10MG 5ML UDC PO PRN (01:47)
[2018-08-02] MEDS: SODIUM CHLORIDE 0.9% 1000ML 1,000 ML IV SCH ×3 (02:06→17:26)
[2018-08-02] MEDS: LEVOFLOXACIN/D5W 750 MG/150 ML BAG IV SCH (02:06)
[2018-08-02] MEDS: methylPREDNISolone 40 MG in SYRINGE 0 ML IV SCH ×3 (02:07→17:26)
[2018-08-02] MEDS: INSULIN ASPART 100 UNITS/ML 3 ML PEN SC SCH ×5 (02:37→21:33)
[2018-08-02 05:24] LABS: Basophils # (auto) 0.01 K/uL (0-0.2); Basophils % (auto) 0.1 %; Hematocrit (blood only) 37.9 % (37-47); Hemoglobin 11.9 g/dL (12.0-16.0); Immature Granulocytes # (auto) 0.21 K/uL (0.00-0.02); Immature Granulocytes % (auto) 1.8 %; Lymphocytes # (auto) 1.54 K/uL (1.2-3.4); Lymphocytes % (auto) 13.2 %; Mean Corpuscular Hgb Conc 31.4 g/dL (32-36); Mean Corpuscular Volume 94.5 fL (80-100); Mean Platelet Volume 9.5 fL (7.4-10.4); Monocytes # (auto) 1.04 K/uL (0.11-0.59); Monocytes % (auto) 8.9 %; Neutrophils # (auto) 8.86 K/uL (1.4-6.5); Platelet Count 216 K/uL (130-400); RDW Coefficient of Variation 16.4 % (11.5-14.5); RDW Standard Deviation 56.6 fL (36.4-46.3); Red Blood Count 4.01 M/uL (4.2-5.4); White Blood Count 11.66 K/uL (4.8-10.8)
[2018-08-02 05:48] LABS: BUN Creatinine Ratio 30.1 (10-20); Calcium 8.5 mg/dl (8.5-10.1); Creatinine Clr Calc Pharmacy 87.4 ml/min; Est GFR (African American) 103.2; Est GFR (Non-African American) 89.1; Potassium 4.8 mmol/L (3.5-5.1)
[2018-08-02] MEDS: HEPARIN SOD 5,000 UNIT/0.5 ML VIAL SQ SCH ×3 (05:54→21:34)
[2018-08-02 06:06] LABS: Estimated Average Glucose 171 mg/dl
[2018-08-02] MEDS: ALBUT/IPRATROP 3MG/0.5MG NEB 3 ML VIAL NEB SCH ×4 (07:06→19:53)
[2018-08-02 07:53] LABS: Partial Thromboplastin Ratio 1.1; Partial Thromboplastin Time 27.3 Seconds (21.0-31.0)
[2018-08-02] MEDS: MONTELUKAST SODIUM 10 MG TABLET PO SCH (09:12)
[2018-08-02] MEDS: FLUTICASONE/SALMETEROL 250/50 (ADVAIR) 14 PUFF/1 INHALER INH SCH ×2 (09:12→21:24)
[2018-08-02] MEDS: ALLOPURINOL 300 MG TAB PO SCH ×2 (09:13→21:24)
[2018-08-02] MEDS: LISINOPRIL 2.5 MG TAB PO SCH (09:13)
[2018-08-02] MEDS: ASPIRIN 81 MG ECTAB PO SCH (09:13)
[2018-08-02] MEDS: OXYBUTYNIN CHLORIDE XL 5 MG TABCR PO SCH (09:13)
[2018-08-02] MEDS: SERTRALINE HCL 50 MG TABLET PO SCH (09:13)
[2018-08-02] MEDS: OSELTAMIVIR PHOSPHATE 75 MG CAP PO SCH ×2 (09:14→21:25)
--- NOTE | 2018-08-02 11:56 | Hospitalist Progress Note ---
Date of Service August 02, 2018 Assessment & Plan (1) Influenza: Noted to have influenza A on admission Has been started him on Tamiflu (2) Pneumonia: No definite pneumonic consolidation Has bilateral atelectasis Failed outpatient treatment with Augmentin for possible bronchitis Has been started on intravenous Levaquin (3) Diabetes mellitus: History of diabetes We will continue with sliding scale insulin coverage (4) AUREA on CPAP: We will continue her own CPAP (5) HTN (hypertension): Monitor blood pressure Continue current medication Other medical condition including depression, gout, hyperlipidemia, obesity very diseased remains reasonably stable Subjective She is a 68-year-old female with significant past medical history of restrictive airway disease, AUREA 1 CPAP, hypertension, hyperlipidemia, depression and diabetes was admitted with increasing shortness of breath and failed outpatient treatment for possible bronchitis. She has noted to have influenza A on admission. 08/02 The patient was seen and examined in medical floor She still has some cough shortness of breath is better He denies any chest pain and/or palpitation Denies any abdominal pain nausea and/or vomiting Physical Exam 2 Vital Signs (Past 24 Hours): Last Vital Signs Temp 36.8 C 08/02/18 11:28 Pulse 74 08/02/18 11:28 Resp 16 08/02/18 11:28 BP 97/54 L 08/02/18 11:28 Pulse Ox 96 08/02/18 11:28 Physical Exam: Lying in bed with minimal distress Constitutional: WD/WN, vitals as above Eyes: PERRL, conjunctivae normal, anicteric sclerae ENMT: external ear and nose normal, oropharynx normal Neck: trachea midline, no thyromegaly Respiratory: + respiratory distress; no labored breathing Auscultation: + diminished lung sounds, + crackles (At the bases) and + wheezes (Minimal wheezing) Cardiovascular: Rate/Rhythm: regular rate and regular rhythm Heart Sounds: normal S1 and normal S2 Gastrointestinal (Abdomen): Inspection/Auscultation: abdomen normal to inspection and normal bowel sounds Neurologic: Alert, awake and oriented x3 Results & Data Laboratory Results Short CBC 08/01/18 08/02/18 Range/Units 22:15 05:12 WBC 14.39 H 11.66 H (4.8-10.8) K/uL Hgb 13.7 11.9 L (12.0-16.0) g/dL Hct 42.6 37.9 (37-47) % Plt Count 272 216 (130-400) K/uL BMP 08/01/18 08/02/18 22:15 05:12 Sodium 135 L 135 L Potassium 4.1 4.8 D Chloride 97 L 102 Carbon Dioxide 28 29 BUN 21 H 20 H Creatinine 0.86 0.67 Glucose 178 H 197 H Calcium 9.6 8.5 Liver Function 08/01/18 Range/Units 22:15 Total Bilirubin 0.3 (0.2-1) mg/dl AST 19 (15-37) U/L ALT 25 (12-78) U/L Alkaline Phosphatase 80 (45-117) U/L Albumin 3.7 (3.4-5.0) gm/dl Urine 08/01/18 Range/Units 22:23 Urine Color Yellow Urine Appearance Clear (Clear) Urine pH 6.0 (4.5-7.5) Ur Specific [place] 1.030 (1.000-1.030) Urine Protein 3+ H (Negative) Urine Glucose (UA) Trace H (Negative) Medications Administered Current Inpatient Medications Acetaminophen (Tylenol) 650 mg PO Q4H PRN PRN Reason: Pain or Fever Stop: 09/01/18 01:00 Albuterol (Duoneb) 3 ml NEB QIDR [facility] Stop: 09/01/18 07:59 Last Admin: 08/02/18 11:06 Dose: 3 ml Albuterol (Duoneb) 3 ml NEB Q2H PRN PRN Reason: Shortness Of Breath Or Wheezing Stop: 09/01/18 01:00 Albuterol (Ventolin Hfa) 2 puffs INH Q6H PRN PRN Reason: Shortness Of Breath Allopurinol (Zyloprim) 300 mg PO BID [facility] Stop: 09/01/18 08:59 Last Admin: 08/02/18 09:13 Dose: 300 mg Aspirin (Ecotrin Ectab) 81 mg PO DAILY [facility] Stop: 09/01/18 08:59 Last Admin: 08/02/18 09:13 Dose: 81 mg Divalproex Sodium (Depakote Extended Release) 1,000 mg PO HS [facility] Stop: 09/01/18 20:59 Guaifenesin/Codeine Phosphate (Robitussin-Ac Sugar Free) 5 ml PO Q6H PRN PRN Reason: Cough Stop: 09/01/18 01:46 Last Admin: 08/02/18 02:06 Dose: 5 ml Heparin Sodium (Porcine) (Heparin Sodium (Porcine)) 5,000 units SQ Q8 [facility] Stop: 09/01/18 05:59 Last Admin: 08/02/18 05:54 Dose: 5,000 units Sodium Chloride (Nss 1000ml) 1,000 mls @ 125 mls/hr IV .Q8H [facility] Stop: 09/01/18 01:00 Last Admin: 08/02/18 09:14 Dose: 125 mls/hr Levofloxacin/Dextrose (Levaquin/D5w) 750 mg in 150 mls @ 100 mls/hr IV Q24H [facility] Stop: 08/09/18 01:59 Last Infusion: 08/02/18 04:07 Dose: Infused Methylprednisolone 40 mg/ (Syringe) 0.64 mls @ 1.5 mls/min IV Q8H [facility] Stop: 09/01/18 01:59 Last Admin: 08/02/18 09:40 Dose: 1.5 mls/min Insulin Aspart (Novolog Flexpen) 0 units SC ACHS [facility] Stop: 09/01/18 07:29 Last Admin: 08/02/18 09:17 Dose: 13 units Lisinopril (Zestril) 2.5 mg PO DAILY [facility] Stop: 09/01/18 08:59 Last Admin: 08/02/18 09:13 Dose: 2.5 mg Miscellaneous Information (Consult) 1 ea N/A DAILY PRN PRN Reason: Consult Stop: 09/01/18 01:09 Miscellaneous Information (Consult Glycemic Management Pharmacy) 1 ea N/A DAILY PRN PRN Reason: Consult Stop: 09/01/18 01:15 Miscellaneous Information () 1 ea N/A DAILY PRN PRN Reason: Consult Stop: 09/01/18 01:19 Montelukast Sodium (Singulair) 10 mg PO DAILY [facility] Stop: 09/01/18 08:59 Last Admin: 08/02/18 09:12 Dose: 10 mg Nitroglycerin (Nitrostat) 0.4 mg SL UD PRN PRN Reason: Chest Pain Stop: 09/01/18 01:00 Ondansetron HCl (Zofran) 4 mg IV Q6H PRN PRN Reason: Nausea Stop: 09/01/18 01:00 Oseltamivir Phosphate (Tamiflu) 75 mg PO BID [facility] Stop: 08/06/18 09:01 Last Admin: 08/02/18 09:14 Dose: 75 mg Oxybutynin Chloride (Ditropan Xl) 5 mg PO DAILY [facility] Stop: 09/01/18 08:59 Last Admin: 08/02/18 09:13 Dose: 5 mg Fluticasone/Salmeterol (Advair Diskus 250/50) 1 puffs INH Q12H [facility] Stop: 09/01/18 08:59 Last Admin: 08/02/18 09:12 Dose: 1 puffs Sertraline HCl (Zoloft) 25 mg PO DAILY [facility] Stop: 09/01/18 08:59 Last Admin: 08/02/18 09:13 Dose: 25 mg Simvastatin (Zocor) 40 mg PO [facility] Stop: 09/01/18 20:59 Trazodone HCl (Desyrel) 100 mg PO [facility] Stop: 09/01/18 20:59 _ (1) Pneumonia Aspiration pneumonia type: Laterality: unspecified laterality Lung location : unspecified part of lung Pneumonia type: due to unspecified organism Qualified Code(s): J18.9 - Pneumonia, unspecified organism
[2018-08-02] MEDS ORDERED: INSULIN GLARGINE 100 UNIT/ML VIAL SC ONE ×3 (12:30→21:00)
--- NOTE | 2018-08-02 15:28 | Pharmacy Report ---
Glycemic Control Consultation - Date of Service August 02, 2018 - Scope Scope: Glycemic Pharmacist consulted by Dr Salcido on 08/02 for glycemic control and to write orders per [facility] inpatient glycemic control protocol - Objective Weight: 102.1 kg Accuchecks BSG (last 24hrs): 08/01/18 08/01/18 08/02/18 21:55 22:15 02:18 Glucose 178 H POC Glucose 187 H 206 H 08/02/18 08/02/18 08/02/18 05:12 08:12 12:01 Glucose 197 H POC Glucose 300 H 297 H Laboratory Data (last 24hrs): 08/01/18 08/02/18 22:15 05:12 Potassium 4.1 4.8 D Carbon Dioxide 28 29 Anion Gap 10.0 4.0 Creatinine 0.86 0.67 Est Cr Clr Drug Dosing 69.2 87.4 HbA1c: Hemoglobin A1c 7.6 % (4.5-5.6) H 08/02/18 05:12 - Recent Pertinent Medications Outpatient Anti-diabetic Regimen: * glipizide 5 mg daily BB, metformin 1,000 mg BIDM * A1c = 7.6 % 08/02/18 The patient is currently receiving: * Basal insulin: Lantus per sliding scale * Correctional Insulin: Novolog Correction per scale ACHS Goal Range: Low 110 mg/dL - High 140 mg/dL Correction Factor: 20 mg/dL/unit * Prandial insulin: Per carb ratio of 1 unit per 6 grams CHO consumed * Oral Agents: Risk Factors for Insulin Resistance: * Steroids: SM 40 q8 * Infection: levaquin/tamiflu * Diet:T2DM * - Assessment & Plan Assessment & Plan: ASSESSMENT: * 68 YO female admitted with influenza and possible pneumonia * Started on solumedrol 40 mg q8H with subsequent increase in BSGs * Patient was late receiving morning lantus/nurse wasn't flagged, night time BSG charted for 0730 dose * Gave additional dose of lantus + added sliding scale for the evening * CF/CR currently between weight based stress of 2 and 3, may need tightened if BSGs continue to be elevated. PLAN FOR INPATIENT GLYCEMIC CONTROL: * Holding outpatient oral diabetes medications * Basal insulin * Lantus 10 x 1, 15x 1, sliding scale for PM * BSG <= 110 mg/dL: hold * BSG 111-140 mg/dL: 5 units * BSG 141-180 mg/dL: 10 units * BSG >180 mg/dL: 15 units * Bolus insulin * NovoLog per scale ACHS or Q6hrs while NPO * Goal Range: Low 110 mg/dL - High 140 mg/dL * Correction Factor: 20 mg/dL/unit * Nutritional / Prandial insulin per carb ratio of 1 unit per 6 grams CHO consumed * Please note that the plan above was derived based on current level of insulin resistance and hospital stress. These recommendations are appropriate for inpatient admission only. Plan of care upon discharge will need to be reassessed to avoid potential outpatient hypo/hyperglycemia. Thank you.
[2018-08-02] MEDS: DIVALPROEX EXTENDED RELEASE 500 MG TAB PO SCH (21:23)
[2018-08-02] MEDS: TRAZODONE HCL 50 MG TAB PO SCH (21:23)
[2018-08-02] MEDS: SIMVASTATIN 40 MG TAB PO SCH (21:25)
[2018-08-03] MEDS: INSULIN ASPART 100 UNITS/ML 3 ML PEN SC SCH ×6 (00:05→21:41)
[2018-08-03] MEDS: SODIUM CHLORIDE 0.9% 1000ML 1,000 ML IV SCH ×2 (02:10→08:03)
[2018-08-03] MEDS: methylPREDNISolone 40 MG in SYRINGE 0 ML IV SCH ×3 (02:14→21:49)
[2018-08-03] MEDS: LEVOFLOXACIN/D5W 750 MG/150 ML BAG IV SCH (02:14)
[2018-08-03] MEDS ORDERED: INSULIN HUMAN REGULAR PER UNIT 4 UNITS in SYRINGE 3.96 ML IV SCH (04:15)
[2018-08-03 04:54] LABS: Basophils # (auto) 0.01 K/uL (0-0.2); Basophils % (auto) 0.1 %; Hematocrit (blood only) 39.2 % (37-47); Hemoglobin 12.4 g/dL (12.0-16.0); Immature Granulocytes # (auto) 0.08 K/uL (0.00-0.02); Immature Granulocytes % (auto) 1.2 %; Lymphocytes # (auto) 1.12 K/uL (1.2-3.4); Lymphocytes % (auto) 16.3 %; Mean Corpuscular Hgb Conc 31.6 g/dL (32-36); Mean Corpuscular Volume 94.7 fL (80-100); Mean Platelet Volume 10.2 fL (7.4-10.4); Monocytes # (auto) 0.15 K/uL (0.11-0.59); Monocytes % (auto) 2.2 %; Neutrophils # (auto) 5.52 K/uL (1.4-6.5); Neutrophils % (auto) 80.2 %; Platelet Count 237 K/uL (130-400); RDW Coefficient of Variation 16.2 % (11.5-14.5); RDW Standard Deviation 56.3 fL (36.4-46.3); Red Blood Count 4.14 M/uL (4.2-5.4); White Blood Count 6.88 K/uL (4.8-10.8)
[2018-08-03 05:12] LABS: BUN Creatinine Ratio 25.1 (10-20); Calcium 8.8 mg/dl (8.5-10.1); Creatinine Clr Calc Pharmacy 69.8 ml/min; Est GFR (African American) 81.6; Est GFR (Non-African American) 70.4; Magnesium 2.2 mg/dl (1.8-2.4); Potassium 4.3 mmol/L (3.5-5.1)
[2018-08-03] MEDS: HEPARIN SOD 5,000 UNIT/0.5 ML VIAL SQ SCH ×3 (06:15→21:39)
[2018-08-03] MEDS: ALBUT/IPRATROP 3MG/0.5MG NEB 3 ML VIAL NEB SCH ×4 (07:18→19:18)
[2018-08-03] MEDS: ASPIRIN 81 MG ECTAB PO SCH (07:57)
[2018-08-03] MEDS: ALLOPURINOL 300 MG TAB PO SCH ×2 (08:00→21:50)
[2018-08-03] MEDS: OXYBUTYNIN CHLORIDE XL 5 MG TABCR PO SCH (08:01)
[2018-08-03] MEDS: SERTRALINE HCL 50 MG TABLET PO SCH (08:01)
[2018-08-03] MEDS: OSELTAMIVIR PHOSPHATE 75 MG CAP PO SCH ×2 (08:02→21:49)
[2018-08-03] MEDS: MONTELUKAST SODIUM 10 MG TABLET PO SCH (08:02)
[2018-08-03] MEDS: LISINOPRIL 2.5 MG TAB PO SCH (08:02)
[2018-08-03] MEDS: FLUTICASONE/SALMETEROL 250/50 (ADVAIR) 14 PUFF/1 INHALER INH SCH ×2 (08:03→21:38)
[2018-08-03] MEDS: INSULIN GLARGINE 100 UNIT/ML VIAL SC SCH ×2 (09:11→21:40)
--- NOTE | 2018-08-03 11:00 | Pharmacy Report ---
Pharmacy Glycemic Short Note 2 - Date of Service August 03, 2018 - Glycemic Short BSG Results (Last 24 hours): 08/02/18 08/02/18 08/02/18 12:01 17:37 20:34 Glucose POC Glucose 297 H 263 H 267 H 08/03/18 08/03/18 08/03/18 00:00 04:05 04:33 Glucose 292 H POC Glucose 307 H 309 H 08/03/18 07:42 Glucose POC Glucose 283 H OUTPATIENT ANTIDIABETIC REGIMEN: * glipizide 5 mg daily BB, metformin 1,000 mg BIDM * A1c = 7.6 % 08/02/18 ASSESSMENT: 08/03/18 * Ms. Perkins received 94 units of insulin yesterday * All BSGs have been above goal, mostly around 300 mg/dL * She is very sensitive to steroids, requiring more than 1 unit/kg/day * Solu-medrol dose has been decreased from 40 mg q8h -> q12h; however, this is right at the threshold for changes to glycemic effects, so I am not anticipating a large decrease in insulin requirements * Will adjust insulins based on est TDD ~150 units, with basal being 30% of this 08/02/18 * 68 YO female admitted with influenza and possible pneumonia * Started on solumedrol 40 mg q8H with subsequent increase in BSGs * Patient was late receiving morning lantus/nurse wasn't flagged, night time BSG charted for 0730 dose * Gave additional dose of lantus + added sliding scale for the evening * CF/CR currently between weight based stress of 2 and 3, may need tightened if BSGs continue to be elevated. PLAN FOR INPATIENT GLYCEMIC CONTROL: * Continue to hold outpatient oral diabetes medications * Basal insulin - increase * Lantus 25 units SQ BID * Bolus insulin - tighten parameters and continue w/ overnight checks * NovoLog per scale ACHS or Q6hrs while NPO, add 00 and 04 accuchecks * Goal Range: Low 110 mg/dL - High 140 mg/dL * Correction Factor: 10 mg/dL/unit * Nutritional / Prandial insulin per carb ratio of 1 unit per 4 grams CHO consumed PLAN FOR DISCHARGE: * A1c of 7.6% indicates fairly good control in the outpatient setting * Continue oral agents with close outpatient f/u
--- NOTE | 2018-08-03 11:46 | Hospitalist Progress Note ---
Date of Service August 03, 2018 Assessment & Plan (1) Influenza: Noted to have influenza A on admission Has been started him on Tamiflu Symptomatically better (2) Pneumonia: No definite pneumonic consolidation Has bilateral atelectasis Failed outpatient treatment with Augmentin for possible bronchitis Has been started on intravenous Levaquin Will change to oral liver (3) Diabetes mellitus: History of diabetes We will continue with sliding scale insulin coverage Blood sugar has been high likely secondary to steroid Decrease the dose of steroid (4) AUREA on CPAP: We will continue her own CPAP (5) HTN (hypertension): Monitor blood pressure Continue current medication Other medical condition including depression, gout, hyperlipidemia, obesity very diseased remains reasonably stable Be discharged tomorrow or day after Subjective She is a 68-year-old female with significant past medical history of restrictive airway disease, AUREA 1 CPAP, hypertension, hyperlipidemia, depression and diabetes was admitted with increasing shortness of breath and failed outpatient treatment for possible bronchitis. She has noted to have influenza A on admission. 08/02 The patient was seen and examined in medical floor She still has some cough shortness of breath is better He denies any chest pain and/or palpitation Denies any abdominal pain nausea and/or vomiting 08/03 The patient was seen and examined in medical unit Has been feeling a lot better Still has minimal cough and some lower chest wall pain secondary to coughing Denies any fever, chills or any body aches Physical Exam 2 Vital Signs (Past 24 Hours): Last Vital Signs Temp 36.6 C 08/03/18 07:50 Pulse 73 08/03/18 11:04 Resp 16 08/03/18 11:04 BP 156/79 H 08/03/18 07:50 Pulse Ox 93 08/03/18 11:04 Constitutional: WD/WN, vitals as above Eyes: PERRL, conjunctivae normal, anicteric sclerae ENMT: external ear and nose normal, oropharynx normal Neck: trachea midline, no thyromegaly Respiratory: normal respiratory effort; no respiratory distress and no labored breathing Auscultation: + diminished lung sounds and + wheezes ( Minimal) Cardiovascular: Rate/Rhythm: regular rate and regular rhythm Heart Sounds: normal S1 and normal S2 Gastrointestinal (Abdomen): Inspection/Auscultation: abdomen normal to inspection and normal bowel sounds Neurologic: PERRL, EOMI, accommodation nl, no face palsy, no dysarthria Results & Data Laboratory Results Short CBC 08/03/18 Range/Units 04:33 WBC 6.88 (4.8-10.8) K/uL Hgb 12.4 (12.0-16.0) g/dL Hct 39.2 (37-47) % Plt Count 237 (130-400) K/uL BMP 08/03/18 04:33 Sodium 136 Potassium 4.3 Chloride 104 Carbon Dioxide 26 BUN 21 H Creatinine 0.84 Glucose 292 H Calcium 8.8 Medications Administered Current Inpatient Medications Acetaminophen (Tylenol) 650 mg PO Q4H PRN PRN Reason: Pain or Fever Stop: 09/01/18 01:00 Albuterol (Duoneb) 3 ml NEB QIDR [facility] Stop: 09/01/18 07:59 Last Admin: 08/03/18 11:04 Dose: 3 ml Albuterol (Duoneb) 3 ml NEB Q2H PRN PRN Reason: Shortness Of Breath Or Wheezing Stop: 09/01/18 01:00 Albuterol (Ventolin Hfa) 2 puffs INH Q6H PRN PRN Reason: Shortness Of Breath Allopurinol (Zyloprim) 300 mg PO BID [facility] Stop: 09/01/18 08:59 Last Admin: 08/03/18 08:00 Dose: 300 mg Aspirin (Ecotrin Ectab) 81 mg PO DAILY [facility] Stop: 09/01/18 08:59 Last Admin: 08/03/18 07:57 Dose: 81 mg Divalproex Sodium (Depakote Extended Release) 1,000 mg PO HS [facility] Stop: 09/01/18 20:59 Last Admin: 08/02/18 21:23 Dose: 1,000 mg Guaifenesin/Codeine Phosphate (Robitussin-Ac Sugar Free) 5 ml PO Q6H PRN PRN Reason: Cough Stop: 09/01/18 01:46 Last Admin: 08/02/18 02:06 Dose: 5 ml Heparin Sodium (Porcine) (Heparin Sodium (Porcine)) 5,000 units SQ Q8 [facility] Stop: 09/01/18 05:59 Last Admin: 08/03/18 06:15 Dose: 5,000 units Methylprednisolone 40 mg/ (Syringe) 0.64 mls @ 1.5 mls/min IV Q12H [facility] Stop: 09/02/18 08:59 Last Admin: 08/03/18 09:29 Dose: 1.5 mls/min Insulin Aspart (Novolog Flexpen) 0 units SC ACHS [facility] Stop: 09/01/18 07:29 Last Admin: 08/03/18 09:11 Dose: 24 units Insulin Aspart (Novolog Flexpen) 0 units SC [id number] [facility] Stop: 08/04/18 04:01 Insulin Glargine (Lantus) 25 units SC BID [facility]; Protocol Stop: 09/02/18 08:59 Last Admin: 08/03/18 09:11 Dose: 25 units Levofloxacin (Levaquin) 750 mg PO DAILY@1100 [facility] Stop: 08/09/18 10:59 Lisinopril (Zestril) 2.5 mg PO DAILY [facility] Stop: 09/01/18 08:59 Last Admin: 08/03/18 08:02 Dose: 2.5 mg Miscellaneous Information (Consult) 1 ea N/A DAILY PRN PRN Reason: Consult Stop: 09/01/18 01:09 Miscellaneous Information (Consult Glycemic Management Pharmacy) 1 ea N/A DAILY PRN PRN Reason: Consult Stop: 09/01/18 01:15 Miscellaneous Information () 1 ea N/A DAILY PRN PRN Reason: Consult Stop: 09/01/18 01:19 Montelukast Sodium (Singulair) 10 mg PO DAILY [facility] Stop: 09/01/18 08:59 Last Admin: 08/03/18 08:02 Dose: 10 mg Nitroglycerin (Nitrostat) 0.4 mg SL UD PRN PRN Reason: Chest Pain Stop: 09/01/18 01:00 Oseltamivir Phosphate (Tamiflu) 75 mg PO BID [facility] Stop: 08/06/18 09:01 Last Admin: 08/03/18 08:02 Dose: 75 mg Oxybutynin Chloride (Ditropan Xl) 5 mg PO DAILY [facility] Stop: 09/01/18 08:59 Last Admin: 08/03/18 08:01 Dose: 5 mg Fluticasone/Salmeterol (Advair Diskus 250/50) 1 puffs INH Q12H [facility] Stop: 09/01/18 08:59 Last Admin: 08/03/18 08:03 Dose: 1 puffs Sertraline HCl (Zoloft) 25 mg PO DAILY [facility] Stop: 09/01/18 08:59 Last Admin: 08/03/18 08:01 Dose: 25 mg Simvastatin (Zocor) 40 mg PO [facility] Stop: 09/01/18 20:59 Last Admin: 08/02/18 21:25 Dose: 40 mg Trazodone HCl (Desyrel) 100 mg PO [facility] Stop: 09/01/18 20:59 Last Admin: 08/02/18 21:23 Dose: 100 mg _ (1) Pneumonia Aspiration pneumonia type: Laterality: unspecified laterality Lung location : unspecified part of lung Pneumonia type: due to unspecified organism Qualified Code(s): J18.9 - Pneumonia, unspecified organism
[2018-08-03] MEDS: TRAZODONE HCL 50 MG TAB PO SCH (21:39)
[2018-08-03] MEDS: DIVALPROEX EXTENDED RELEASE 500 MG TAB PO SCH (21:40)
[2018-08-03] MEDS: SIMVASTATIN 40 MG TAB PO SCH (21:40)
[2018-08-04] MEDS ORDERED: INSULIN ASPART 100 UNITS/ML 3 ML PEN SC SCH
[2018-08-04] MEDS: HEPARIN SOD 5,000 UNIT/0.5 ML VIAL SQ SCH ×2 (06:18→14:12)
[2018-08-04] MEDS: ALBUT/IPRATROP 3MG/0.5MG NEB 3 ML VIAL NEB SCH ×3 (06:52→15:26)
[2018-08-04] MEDS: INSULIN ASPART 100 UNITS/ML 3 ML PEN SC SCH ×2 (07:56→12:44)
[2018-08-04] MEDS: FLUTICASONE/SALMETEROL 250/50 (ADVAIR) 14 PUFF/1 INHALER INH SCH (07:56)
[2018-08-04] MEDS: ALLOPURINOL 300 MG TAB PO SCH (07:58)
[2018-08-04] MEDS: OSELTAMIVIR PHOSPHATE 75 MG CAP PO SCH (07:58)
[2018-08-04] MEDS: OXYBUTYNIN CHLORIDE XL 5 MG TABCR PO SCH (07:58)
[2018-08-04] MEDS: SERTRALINE HCL 50 MG TABLET PO SCH (07:58)
[2018-08-04] MEDS: MONTELUKAST SODIUM 10 MG TABLET PO SCH (07:59)
[2018-08-04] MEDS: LISINOPRIL 2.5 MG TAB PO SCH (07:59)
[2018-08-04] MEDS: ASPIRIN 81 MG ECTAB PO SCH (07:59)
[2018-08-04] MEDS ORDERED: predniSONE 20 MG TAB PO SCH (09:00)
[2018-08-04] MEDS ORDERED: INSULIN GLARGINE 100 UNIT/ML VIAL SC SCH ×2 (09:00→21:00)
--- NOTE | 2018-08-04 10:25 | Pharmacy Report ---
Pharmacy Glycemic Short Note 2 - Date of Service August 04, 2018 - Glycemic Short BSG Results (Last 24 hours): 08/03/18 08/03/18 08/03/18 11:24 16:51 20:48 POC Glucose 288 H 184 H 111 H 08/04/18 07:35 POC Glucose 113 H OUTPATIENT ANTIDIABETIC REGIMEN: * glipizide 5 mg daily BB, metformin 1,000 mg BIDM * A1c = 7.6 % 08/02/18 ASSESSMENT: 08/04/18 * Ms. Perkins received 147 units of insulin yesterday * BSGs are significantly improved this AM. Fasting = 113 mg/dL * Steroids have been reduced to prednisone 40 mg daily starting this AM * Will need to adjust insulin regimen to prevent hypoglycemia with steroid reduction. Est TDD with prednisone on board ~ 100 units (anticipating that ~40 units will be required solely to cover the prednisone). Will split basal/bolus with steroids on board, giving the higher dose of Lantus in the AM to cover prednisone throughout the day. 08/03/18 * Ms. Perkins received 94 units of insulin yesterday * All BSGs have been above goal, mostly around 300 mg/dL * She is very sensitive to steroids, requiring more than 1 unit/kg/day * Solu-medrol dose has been decreased from 40 mg q8h -> q12h; however, this is right at the threshold for changes to glycemic effects, so I am not anticipating a large decrease in insulin requirements * Will adjust insulins based on est TDD ~150 units, with basal being 30% of this 08/02/18 * 68 YO female admitted with influenza and possible pneumonia * Started on solumedrol 40 mg q8H with subsequent increase in BSGs * Patient was late receiving morning lantus/nurse wasn't flagged, night time BSG charted for 0730 dose * Gave additional dose of lantus + added sliding scale for the evening * CF/CR currently between weight based stress of 2 and 3, may need tightened if BSGs continue to be elevated. PLAN FOR INPATIENT GLYCEMIC CONTROL: * Continue to hold outpatient oral diabetes medications * Basal insulin - decrease * Lantus 20 units qAM * Lantus qHS based on the following scale: * 10 units for BSG < 200 * 15 units for BSG 200 or above * Bolus insulin - loosen parameters, d/c overnight checks * NovoLog per scale ACHS or Q6hrs while NPO * Goal Range: Low 110 mg/dL - High 140 mg/dL * Correction Factor: 10 mg/dL/unit * Nutritional / Prandial insulin per carb ratio of 1 unit per 4 grams CHO consumed PLAN FOR DISCHARGE: * A1c of 7.6% indicates fairly good control in the outpatient setting * Continue oral agents with close outpatient f/u
[2018-08-04] MEDS ORDERED: levoFLOXacin 750 MG TAB PO SCH (11:00)
--- NOTE | 2018-08-04 11:01 | Hospitalist Progress Note ---
Date of Service August 04, 2018 Assessment & Plan (1) Influenza: Noted to have influenza A on admission Has been started him on Tamiflu Symptomatically better No signs of influenza today- 08/04 (2) Pneumonia: No definite pneumonic consolidation Has bilateral atelectasis Failed outpatient treatment with Augmentin for possible bronchitis Has been started on intravenous Levaquin Will change to oral Levaquin We will continue antibiotic for 7 days in total (3) Diabetes mellitus: History of diabetes We will continue with sliding scale insulin coverage Blood sugar has been high likely secondary to steroid Decrease the dose of steroid Blood sugar has been controlled with reducing dose of steroid (4) AUREA on CPAP: We will continue her own CPAP (5) HTN (hypertension): Monitor blood pressure Continue current medication Other medical condition including depression, gout, hyperlipidemia, obesity very diseased remains reasonably stable Be discharged tomorrow or day after Will need to go home on oral tapered dose of steroids Will get to a step oxygen saturation test before discharge Subjective She is a 68-year-old female with significant past medical history of restrictive airway disease, AUREA 1 CPAP, hypertension, hyperlipidemia, depression and diabetes was admitted with increasing shortness of breath and failed outpatient treatment for possible bronchitis. She has noted to have influenza A on admission. 08/02 The patient was seen and examined in medical floor She still has some cough shortness of breath is better He denies any chest pain and/or palpitation Denies any abdominal pain nausea and/or vomiting 08/03 The patient was seen and examined in medical unit Has been feeling a lot better Still has minimal cough and some lower chest wall pain secondary to coughing Denies any fever, chills or any body aches 08/04 The patient was seen and examined in medical floor She is much better today and wants to get out of the hospital Denies any symptoms whatsoever Has been ambulating well Physical Exam 2 Vital Signs (Past 24 Hours): Last Vital Signs Temp 36.5 C 08/04/18 07:47 Pulse 72 08/04/18 10:03 Resp 16 08/04/18 10:03 BP 181/95 H 08/04/18 07:47 Pulse Ox 93 08/04/18 10:03 Constitutional: WD/WN, vitals as above Eyes: PERRL, conjunctivae normal, anicteric sclerae ENMT: external ear and nose normal, oropharynx normal Neck: trachea midline, no thyromegaly Respiratory: normal respiratory effort; no respiratory distress and no labored breathing Auscultation: + diminished lung sounds and + crackles (At the bases and mostly on right side); no wheezes (Minimal) Cardiovascular: Rate/Rhythm: regular rate and regular rhythm Heart Sounds: normal S1 and normal S2 Gastrointestinal (Abdomen): Inspection/Auscultation: abdomen normal to inspection and normal bowel sounds Neurologic: PERRL, EOMI, accommodation nl, no face palsy, no dysarthria Results & Data Medications Administered Current Inpatient Medications Acetaminophen (Tylenol) 650 mg PO Q4H PRN PRN Reason: Pain or Fever Stop: 09/01/18 01:00 Albuterol (Duoneb) 3 ml NEB QIDR [facility] Stop: 09/01/18 07:59 Last Admin: 08/04/18 06:52 Dose: 3 ml Albuterol (Duoneb) 3 ml NEB Q2H PRN PRN Reason: Shortness Of Breath Or Wheezing Stop: 09/01/18 01:00 Albuterol (Ventolin Hfa) 2 puffs INH Q6H PRN PRN Reason: Shortness Of Breath Allopurinol (Zyloprim) 300 mg PO BID [facility] Stop: 09/01/18 08:59 Last Admin: 08/04/18 07:58 Dose: 300 mg Aspirin (Ecotrin Ectab) 81 mg PO DAILY [facility] Stop: 09/01/18 08:59 Last Admin: 08/04/18 07:59 Dose: 81 mg Divalproex Sodium (Depakote Extended Release) 1,000 mg PO HS [facility] Stop: 09/01/18 20:59 Last Admin: 08/03/18 21:40 Dose: 1,000 mg Guaifenesin/Codeine Phosphate (Robitussin-Ac Sugar Free) 5 ml PO Q6H PRN PRN Reason: Cough Stop: 09/01/18 01:46 Last Admin: 08/02/18 02:06 Dose: 5 ml Heparin Sodium (Porcine) (Heparin Sodium (Porcine)) 5,000 units SQ Q8 [facility] Stop: 09/01/18 05:59 Last Admin: 08/04/18 06:18 Dose: 5,000 units Insulin Aspart (Novolog Flexpen) 0 units SC ACHS [facility] Stop: 09/01/18 07:29 Last Admin: 08/04/18 07:56 Dose: 16 units Insulin Glargine (Lantus) 20 units SC QAM [facility]; Protocol Stop: 09/03/18 08:59 Last Admin: 08/04/18 07:57 Dose: 20 units Insulin Glargine (Lantus) 0 units SC HS [facility]; Protocol Stop: 09/03/18 20:59 Levofloxacin (Levaquin) 750 mg PO DAILY@1100 [facility] Stop: 08/09/18 10:59 Lisinopril (Zestril) 2.5 mg PO DAILY [facility] Stop: 09/01/18 08:59 Last Admin: 08/04/18 07:59 Dose: 2.5 mg Miscellaneous Information (Consult) 1 ea N/A DAILY PRN PRN Reason: Consult Stop: 09/01/18 01:09 Miscellaneous Information (Consult Glycemic [facility] Pharmacy) 1 ea N/A DAILY PRN PRN Reason: Consult Stop: 09/01/18 01:15 Miscellaneous Information () 1 ea N/A DAILY PRN PRN Reason: Consult Stop: 09/01/18 01:19 Montelukast Sodium (Singulair) 10 mg PO DAILY [facility] Stop: 09/01/18 08:59 Last Admin: 08/04/18 07:59 Dose: 10 mg Nitroglycerin (Nitrostat) 0.4 mg SL UD PRN PRN Reason: Chest Pain Stop: 09/01/18 01:00 Oseltamivir Phosphate (Tamiflu) 75 mg PO BID [facility] Stop: 08/06/18 09:01 Last Admin: 08/04/18 07:58 Dose: 75 mg Oxybutynin Chloride (Ditropan Xl) 5 mg PO DAILY [facility] Stop: 09/01/18 08:59 Last Admin: 08/04/18 07:58 Dose: 5 mg Prednisone (Prednisone) 40 mg PO DAILY [facility] Stop: 09/03/18 08:59 Last Admin: 08/04/18 08:03 Dose: 40 mg Fluticasone/Salmeterol (Advair Diskus 250/50) 1 puffs INH Q12H [facility] Stop: 09/01/18 08:59 Last Admin: 08/04/18 07:56 Dose: 1 puffs Sertraline HCl (Zoloft) 25 mg PO DAILY [facility] Stop: 09/01/18 08:59 Last Admin: 08/04/18 07:58 Dose: 25 mg Simvastatin (Zocor) 40 mg PO [facility] Stop: 09/01/18 20:59 Last Admin: 08/03/18 21:40 Dose: 40 mg Trazodone HCl (Desyrel) 100 mg PO [facility] Stop: 09/01/18 20:59 Last Admin: 08/03/18 21:39 Dose: 100 mg _ (1) Pneumonia Aspiration pneumonia type: Laterality: unspecified laterality Lung location : unspecified part of lung Pneumonia type: due to unspecified organism Qualified Code(s): J18.9 - Pneumonia, unspecified organism
[2018-08-04] MEDS ORDERED: LISINOPRIL 2.5 MG TAB PO ONE (13:07)
--- NOTE | 2018-08-05 07:56 | Discharge Summary ---
Date of Service August 05, 2018 Admission HPI Per Admitting Provider DICTATED BY: Thad Salcido MD DATE OF ADMISSION: 08/01/2018 CHIEF COMPLAINT: Shortness of breath and fever. HISTORY OF PRESENT ILLNESS: This is a 68-year-old female with past medical history significant for type 2 diabetes; gout; hyperlipidemia; goiter; COPD, severe, on home oxygen; hypertension; obesity; sleep apnea; major depression; lumbar spinal stenosis. Presents with shortness of breath and fever, says it started on Sunday, and she is coughing up yellow phlegm, feeling very short of breath. Walking few distances is making her short of breath. She could not sleep well because of shortness of breath. Appetite is not that great for the last few days. Denies any chest pain. No headaches, has some runny nose, feels congested in the chest. No nausea, no vomiting, no abdominal pain, no diarrhea or constipation, no bloody micturition, no black stools or blood in the stools. No swelling of the legs. She went to family doctor yesterday and was prescribed prednisone and Augmentin, but it is not helping, so she came to the ER. Admission Exam Per Admitting Provider PHYSICAL EXAMINATION: GENERAL: The patient is obese, not in acute distress. VITAL SIGNS: Temperature 37.6, T-max is 38.5, pulse 102, respiratory rate 22, blood pressure 122/63, oxygen 92% on 3 liters. HEENT: No pallor, no icterus. Pupils equal, round, and reactive to light. NECK: No JVD, no neck masses, no carotid bruits. CARDIOVASCULAR: S1, S2 heard. Tachycardia. No murmurs. RESPIRATORY SYSTEM: Normal AP diameter. No accessory muscle use. Bilateral rhonchi heard. ABDOMEN: Soft, bowel sounds present. Nontender. No distention. CENTRAL NERVOUS SYSTEM: Cranial nerves II-XII grossly intact, nonfocal. EXTREMITIES: No edema, no erythema. Principal Diagnosis Influenza A, possible pneumonia/severe acute bronchitis, diabetes mellitus, sleep apnea, hypertension Discharge Exam Constitutional WD/WN, vitals as above Eyes PERRL, conjunctivae normal, anicteric sclerae ENMT external ear and nose normal, oropharynx normal Neck trachea midline, no thyromegaly Respiratory normal respiratory effort; no respiratory distress and no labored breathing Auscultation: + diminished lung sounds and + crackles (At the bases and mostly on right side); no wheezes (Minimal) Cardiovascular Rate/Rhythm: regular rate and regular rhythm Heart Sounds: normal S1 and normal S2 Gastrointestinal (Abdomen) Inspection/Auscultation: abdomen normal to inspection and normal bowel sounds Neurologic PERRL, EOMI, accommodation nl, no face palsy, no dysarthria Discharge Data Allergies Allergy/AdvReac Type Severity Reaction Status Date / Time Bactrim Allergy Unknown . Verified 11/02/16 09:17 Sulfa (Sulfonamide Allergy Unknown "SULFA = Verified 08/01/18 22:26 Antibiotics) HIVES" sulfamethoxazole Allergy Unknown . Verified 08/01/18 22:26 trimethoprim Allergy Unknown . Verified 08/01/18 22:26 Consultations 08/02/18 01:01 Consult Case Management - Discharge Planning Routine Ordered Studies 08/01/18 22:03 CT head/brain wo con Stat Hospital Course (1) Influenza: Noted to have influenza A on admission Has been started him on Tamiflu Symptomatically better No signs of influenza today08/04 (2) Pneumonia: No definite pneumonic consolidation Has bilateral atelectasis Failed outpatient treatment with Augmentin for possible bronchitis Has been started on intravenous Levaquin Will change to oral Levaquin We will continue antibiotic for 7 days in total (3) Diabetes mellitus: History of diabetes We will continue with sliding scale insulin coverage Blood sugar has been high likely secondary to steroid Decrease the dose of steroid Blood sugar has been controlled with reducing dose of steroid (4) AUREA on CPAP: We will continue her own CPAP (5) HTN (hypertension): Monitor blood pressure Continue current medication Other medical condition including depression, gout, hyperlipidemia, obesity very diseased remains reasonably stable Be discharged tomorrow or day after Will need to go home on oral tapered dose of steroids Will get to a step oxygen saturation test before discharge Total Time Total Time Spent Total Time Spent (In Minutes): 35 minutes Total Time Includes: Examination of the Patient, Discharge Planning, Medication Reconciliation and Communication With Other Providers Discharge Plan Discharge Items Patient Disposition: Home - Self-Care Reason For Visit: SOB, FEVER Discharge Diagnosis: Influenza A, possible pneumonia/severe acute bronchitis, diabetes mellitus, sleep apnea, hypertension Condition: Good Discharge Goals: Decrease discomfort, Improve disease control and Improve function Activity: Resume your previous activity Non-emergency contact: Primary Care Provider Call non-emergency contact if: you have any medication questions and your symptoms worsen Follow-up/Referrals: Regulo Patel DO [Primary Care Provider] - (Dr. Patel's office will call tomorrow for an appointment) Diet: Heart Healthy and Low Sodium (2gm) Addtl Provider Instructions: Please take precaution to avoid fall Prescriptions: New oseltamivir [Tamiflu] 75 mg Capsule 75 mg PO BID 2 Days Qty: 4 RF: 0 levofloxacin 750 mg Tablet 750 mg PO DAILY@1100 2 Days Qty: 2 RF: 0 lisinopril [Zestril] 5 mg Tablet 5 mg PO DAILY 30 Days Qty: 30 RF: 0 prednisone 10 mg tablet 10 mg PO UD Qty: 26 RF: 0 Continue furosemide 40 mg tablet 40 mg PO DAILY RF: 0 metformin 500 mg tablet 1,000 mg PO BID RF: 0 trazodone 50 mg tablet 100 mg PO HS RF: 0 simvastatin 40 mg tablet 40 mg PO HS RF: 0 divalproex 500 mg tablet extended release 24 hr 1,000 mg PO HS RF: 0 oxybutynin chloride 5 mg Tablet Extended Release 24hr 5 mg PO DAILY RF: 0 sertraline 25 mg Tablet 25 mg PO DAILY RF: 0 montelukast 10 mg tablet 10 mg PO DAILY RF: 0 allopurinol 300 mg tablet 300 mg PO BID RF: 0 albuterol sulfate [ProAir HFA] 90 mcg/actuation Hfa Aerosol Inhaler 2 puff INHALATION Q6H PRN (Reason: Shortness Of Breath) RF: 0 fluticasone-salmeterol [Advair Diskus] 250-50 mcg/dose Blister With Device 1 inh INHALATION Q12H RF: 0 aspirin 81 mg Tablet,Delayed Release (Dr/Ec) 81 mg PO DAILY RF: 0 glipizide 5 mg 5 mg PO DAILYBB RF: 0 ipratropium-albuterol 0.5 mg-3 mg(2.5 mg base)/3 mL Solution For Nebulization 3 ml INHALATION QID RF: 0 Discontinued prednisone 20 mg tablet 20 mg PO UD RF: 0 lisinopril 2.5 mg Tablet 2.5 mg PO DAILY RF: 0 amoxicillin-pot clavulanate 875-125 mg tablet 1 tab PO BID RF: 0 Stand-Alone Forms: [facility] Discharge Orders: Discharge Order (Routine); Ordered 08/04/18 Ordered By: Katalina Stewart Admission Data Admit Date/Time: 08/02/18 00:00 Attending Provider: Katalina Stewart Admit Provider: Thad Salcido Primary Care Provider: Regulo Patel V Service: Telemetry Medical Other Interventions: Discharge Summary Assessment (RN) Last Done: 08/04/18 15:54 DC Date/Time DO NOT enter until pt leaves facility: 08/04/18 16:46
[2018-08-05] MEDS ORDERED: LISINOPRIL 5 MG TAB PO SCH (09:00)
== END 2018-08-04 16:46 | disposition home or self-care (01) | DRG 194 ==
LOC: ED 21:46 → 2N 08-02

== ENCOUNTER 2018-09-19 15:26 | Inpatient (IN) ==
[2018-09-19] MEDS ORDERED: ALBUT/IPRATROP 3MG/0.5MG NEB 3 ML VIAL NEB STA ×2 (16:35→18:31)
[2018-09-19 17:05] LABS: Basophils # (auto) 0.06 K/uL (0-0.2); Basophils % (auto) 0.3 %; Eosinophils # (auto) 0.02 K/uL (0-0.5); Eosinophils % (auto) 0.1 %; Hematocrit (blood only) 41.4 % (37-47); Hemoglobin 13.7 g/dL (12.0-16.0); Immature Granulocytes # (auto) 0.47 K/uL (0.00-0.02); Immature Granulocytes % (auto) 2.5 %; Lymphocytes # (auto) 3.61 K/uL (1.2-3.4); Lymphocytes % (auto) 19.2 %; Mean Corpuscular Hgb Conc 33.1 g/dL (32-36); Mean Corpuscular Volume 93.2 fL (80-100); Mean Platelet Volume 9.7 fL (7.4-10.4); Monocytes # (auto) 2.03 K/uL (0.11-0.59); Monocytes % (auto) 10.8 %; Neutrophils # (auto) 12.59 K/uL (1.4-6.5); Neutrophils % (auto) 67.1 %; Nucleated RBC # (auto) 0.02 K/uL (0-0); Nucleated RBC % (auto) 0.1 %; Platelet Count 260 K/uL (130-400); RDW Coefficient of Variation 16.3 % (11.5-14.5); RDW Standard Deviation 55.6 fL (36.4-46.3); Red Blood Count 4.44 M/uL (4.2-5.4); White Blood Count 18.78 K/uL (4.8-10.8)
[2018-09-19 17:22] LABS: Alanine Aminotransferase 10 U/L (12-78); Albumin Level 3.2 gm/dl (3.4-5.0); Aspartate Aminotransferase 6 U/L (15-37); BUN Creatinine Ratio 26.3 (10-20); Bilirubin Direct 0.1 mg/dl (0-0.2); Blood Urea Nitrogen 20 mg/dl (7-18); Calcium 9.2 mg/dl (8.5-10.1); Carbon Dioxide 26 mmol/L (21-32); Chloride 100 mmol/L (98-107); Creatinine Clr Calc Pharmacy 77.2 ml/min; Est GFR (African American) 93.6; Est GFR (Non-African American) 80.8; Glucose 123 mg/dl (70-99); Magnesium 1.8 mg/dl (1.8-2.4); Sodium 135 mmol/L (136-145)
[2018-09-19 17:22] LABS: Base Excess VBG 3.5 mEq/L; Oxygen Saturation VBG 87.6 %; pH VBG 7.42 (7.36-7.41)
[2018-09-19 17:28] LABS: Alkaline Phosphatase 73 U/L (45-117); Bilirubin,Total 0.4 mg/dl (0.2-1); NT Pro B Type Natriuretic Pept 359 pg/ml (0-900); Troponin I < 0.015 ng/ml (0-0.045)
--- NOTE | 2018-09-19 17:28 | XRay Report ---
TWO VIEW CHEST CLINICAL HISTORY: Dyspnea. FINDINGS: PA and lateral chest radiographs are compared to study dated 08/01/2018 and correlated with chest CT dated 07/13/2015. The PA view is degraded by patient rotation. The heart is enlarged and there is atherosclerotic calcification of the thoracic aorta. The pulmonary vasculature is noncongested. T here is chronic elevation of the right hemidiaphragm with associated right basilar atelectasis. No ai rspace consolidation or pleural effusion is identified. There is no pneumothorax. The skeletal struct ures are osteopenic. Degenerative change is noted throughout the thoracic spine. There are numerous h ealed left-sided rib fractures. IMPRESSION: Cardiomegaly with no acute cardiopulmonary abnormality. Electronically signed by: Rufus Soto M.D. 09/19/2018 5:27 PM
[2018-09-19 17:46] LABS: Influenza A virus by PCR Neg for Influ A (Neg); Influenza B virus by PCR Neg for Influ B (Neg)
[2018-09-19 18:20] LABS: Appearance Urine Clear (Clear); Bacteria Urine Automated Negative (Negative); Blood Urine Negative (Negative); Color Urine Dark Yellow; Epithelial Cell Urine Auto >30 /lpf (0-5); Glucose Urine UA Negative (Negative); Ketones Urine Trace (Negative); Leukocyte Esterase Urine Trace (Negative); Nitrite Urine Negative (Negative); Protein Urine Negative (Negative); RBC Urine Automated 0-4 /hpf (0-4); Specific Gravity Urine 1.021 (1.000-1.030); Urobilinogen Urine Negative (Negative)
[2018-09-19 18:43] LABS: Bilirubin Urine Negative (Negative); Ictotest Urine Negative (Negative)
[2018-09-19 19:04] LABS: Calcium Oxalate Crystals Urine Present (None Prsent)
[2018-09-19] MEDS ORDERED: GLUCOSE 10 TABS/TUBE PO PRN (20:21)
[2018-09-19] MEDS ORDERED: ACETAMINOPHEN 325 MG TAB PO PRN (20:21)
[2018-09-19] MEDS ORDERED: CARBOHYDRATES FOR HYPOGLYCEMIA PO PRN (20:21)
[2018-09-19] MEDS ORDERED: DEXTROSE 50% 50 ML SYRINGE IV PRN (20:21)
[2018-09-19] MEDS ORDERED: GLUCOSE 40% GEL 15 GM TUBE PO PRN (20:21)
[2018-09-19] MEDS ORDERED: GLUCAGON FOR INJ 1 MG VIAL SQ PRN (20:21)
[2018-09-19] MEDS: SODIUM CHLORIDE 0.9% 1000ML 1,000 ML IV SCH (20:28)
[2018-09-19] MEDS: DOXYCYCLINE HYCLATE 100 MG in DEXTROSE 5% 100 ML IV SCH (20:28)
[2018-09-19] MEDS: ALBUT/IPRATROP 3MG/0.5MG NEB 3 ML VIAL NEB SCH (20:45)
[2018-09-19] MEDS: FLUTICASONE/SALMETEROL 250/50 (ADVAIR) 14 PUFF/1 INHALER INH SCH (21:08)
[2018-09-19] MEDS: ROSUVASTATIN CALCIUM 20 MG TAB PO SCH (21:09)
[2018-09-19] MEDS: ALLOPURINOL 300 MG TAB PO SCH (21:09)
[2018-09-19] MEDS: DIVALPROEX EXTENDED RELEASE 500 MG TAB PO SCH (21:09)
[2018-09-19] MEDS: TRAZODONE HCL 50 MG TAB PO SCH (21:09)
[2018-09-19] MEDS: ENOXAPARIN INJ 40 MG/0.4 ML SYR SQ SCH (21:10)
[2018-09-19] MEDS: INSULIN ASPART 100 UNITS/ML 3 ML PEN SC SCH (21:11)
--- NOTE | 2018-09-19 21:15 | History & Physical Report ---
Date of Service September 19, 2018 Assessment & Plan (1) Acute on chronic respiratory failure with hypoxia: (2) COPD exacerbation: -admit to med surg with tele -patient presenting from home with reports of increasing cough and shortness of breath x 1 week -In the ED, ambulatory pulse ox 84% on room air, patient currently requiring 4 L of oxygen via nasal cannula to maintain oxygen saturations greater than 92% -CXR negative for acute pulmonary findings, influenza PCR negative -COPD exacerbation likely secondary to URI /bronchitis -WBC 18 K, no other signs of sepsis -[id number] nebulizer treatments, start prednisone 40 mg p.o. daily times 5 days -Flutter valve to help mobilize secretions -Empiric doxycycline -Gentle IVF -Patient typically wears 3 L of oxygen at night, may need two step oxygen evaluation before discharge -Patient reports she has been prescribed Advair in the past however has been unable to afford it, case management consult placed; patient ordered Advair while admitted -Continue home dose of Singulair however will make daily (patient reports only using as needed) (3) Diabetes mellitus: -Hgb A1c 7.6 09/16/18 -Hold oral agents and utilize NovoLog per protocol while hospitalized -Monitor blood sugars closely while on steroids (4) HTN (hypertension): -Continue lisinopril -Holding furosemide while receiving gentle IVF as above (5) Dyslipidemia: -Continue statin (6) Gout: -Continue allopurinol (7) Depression: -Continue sertraline, trazodone, Depakote (8) DVT prophylaxis: -SQ Lovenox History of Present Illness Chief Complaint: Cough, shortness of breath Primary Care Provider: Regulo Patel DO 68-year-old female who presents to the ED with cough and shortness of breath. Patient was recently admitted to [facility] 08/02 through 08/04 for COPD exacerbation, influenza, suspected pneumonia. She was discharged on courses of prednisone, levaquin, and tamilfu. She reports she felt as though she had completely recovered from that illness. She reports her current symptoms began about one week ago. She reports cough, shortness of breath, and sinus congestion. Cough has been productive for green/yellow sputum. She has shortness of breath with minimal exertion. She typically wears oxygen at night however has been using during the day due to shortness of breath. She is to be using Advair however has not for the past year due to cost. She denies chest pain and palpitations. No lightheadedness, dizziness, diaphoresis, syncopal events. She denies abdominal pain, nausea, vomiting, diarrhea. No fevers or chills. She denies any urinary symptoms. In the ED, ambulatory pulse ox was 84% on room air. Patient is currently requiring 4 L of oxygen via nasal cannula to maintain saturations greater than 92%. WBC 18 K, other labs unremarkable. CXR is negative for acute pulmonary findings. Patient was given nebulizer treatment with improvement in her symptoms. Allergies Allergy/AdvReac Type Severity Reaction Status Date / Time Bactrim Allergy Unknown . Verified 11/02/16 09:17 Sulfa (Sulfonamide Allergy Unknown "SULFA = Verified 09/19/18 17:52 Antibiotics) HIVES" sulfamethoxazole Allergy Unknown . Verified 09/19/18 17:52 trimethoprim Allergy Unknown . Verified 09/19/18 17:52 Home Medications Home Medications Medication Instructions Recorded Confirmed Type allopurinol 300 mg PO BID 08/01/18 09/19/18 History divalproex 1,000 mg PO HS 08/01/18 09/19/18 History furosemide 40 mg PO DAILY 08/01/18 09/19/18 History metformin 1,000 mg PO BID 08/01/18 09/19/18 History montelukast 10 mg PO DAILY PRN 08/01/18 09/19/18 History sertraline 25 mg PO DAILY 08/01/18 09/19/18 History trazodone 100 mg PO HS 08/01/18 09/19/18 History aspirin 81 mg PO QAM 08/02/18 09/19/18 History fesoterodine [Toviaz] 8 mg PO DAILY 09/19/18 09/19/18 History lisinopril 5 mg PO DAILY 09/19/18 09/19/18 History rosuvastatin 20 mg PO HS 09/19/18 09/19/18 History Past Med/Surg History Medical History COPD, severe (Chronic) Depression (Chronic) Gout (Chronic) Dyslipidemia (Chronic) HTN (hypertension) (Chronic) Diabetes mellitus (Chronic) AUREA on CPAP (Chronic) Surgical History History of hysterectomy (Chronic) History of total left knee replacement (Chronic) Family History Other Family history non-contributory Social History Preferred Language: Bahamian Communication Ability: Effective Clinical Counselor Required: No Beliefs That Will Affect Care: None Current Living Situation: Spouse Other Information That Helps Us Care for You: No Feels Safe at Home: Yes Safety Concerns: Feels Safe At This Time Smoking Status: Never smoker Hx Alcohol Use: No Hx Substance Use: No Review of Systems ROS per HPI, all other systems reviewed and negative Physical Exam Vital Signs (Past 24 Hours): Last Vital Signs Temp 36.7 C 09/19/18 15:28 Pulse 86 09/19/18 20:48 Resp 18 09/19/18 20:48 BP 144/82 H 09/19/18 19:53 Pulse Ox 95 09/19/18 20:48 Constitutional: WD/WN, vitals as above Eyes: + conjunctival abnormality (Small amount of drainage noted from each tear duct), + anicteric sclerae and PERRL ENMT: external ear and nose normal, oropharynx normal Respiratory: normal respiratory effort; no respiratory distress Auscultation: + diminished lung sounds Coarse breath sounds bilaterally Cardiovascular: Rate/Rhythm: regular rate and regular rhythm Vessels: normal peripheral pulses Extremities: no edema Gastrointestinal (Abdomen): normal bowel sounds, soft, nontender, no hepatosplenomegaly Musculoskeletal: no cyanosis or clubbing, extremities motor strength 5/5 Skin: no rashes, warm and dry Neurologic: PERRL, EOMI, accommodation nl, no face palsy, no dysarthria Psychiatric: A+Ox3, euthymic affect Results & Data Laboratory Results Laboratory Last Values WBC 18.78 K/uL (4.8-10.8) H 09/19/18 16:57 RBC 4.44 M/uL (4.2-5.4) 09/19/18 16:57 Hgb 13.7 g/dL (12.0-16.0) 09/19/18 16:57 Hct 41.4 % (37-47) 09/19/18 16:57 MCV 93.2 fL (80-100) 09/19/18 16:57 MCH 30.9 pg (25-34) 09/19/18 16:57 MCHC 33.1 g/dL (32-36) 09/19/18 16:57 RDW Std Deviation 55.6 fL (36.4-46.3) H 09/19/18 16:57 RDW Coeff of Yahaira 16.3 % (11.5-14.5) H 09/19/18 16:57 Plt Count 260 K/uL (130-400) 09/19/18 16:57 MPV 9.7 fL (7.4-10.4) 09/19/18 16:57 Immature Gran % (Auto) 2.5 % 09/19/18 16:57 Neut % (Auto) 67.1 % 09/19/18 16:57 Lymph % (Auto) 19.2 % 09/19/18 16:57 [place] % (Auto) 10.8 % 09/19/18 16:57 Eos % (Auto) 0.1 % 09/19/18 16:57 Baso % (Auto) 0.3 % 09/19/18 16:57 Immature Gran # (Auto) 0.47 K/uL (0.00-0.02) H 09/19/18 16:57 Neut # (Auto) 12.59 K/uL (1.4-6.5) H 09/19/18 16:57 Lymph # (Auto) 3.61 K/uL (1.2-3.4) H 09/19/18 16:57 [place] # (Auto) 2.03 K/uL (0.11-0.59) H 09/19/18 16:57 Eos # (Auto) 0.02 K/uL (0-0.5) 09/19/18 16:57 Baso # (Auto) 0.06 K/uL (0-0.2) 09/19/18 16:57 Absolute Nucleated RBC 0.02 K/uL (0-0) H 09/19/18 16:57 Nucleated RBC % (auto) 0.1 % 09/19/18 16:57 VBG pH 7.42 (7.36-7.41) H 09/19/18 17:03 VBG pCO2 45 mmHg (38-50) 09/19/18 17:03 VBG pO2 53 mmHg 09/19/18 17:03 VBG HCO3 29 mmol/L 09/19/18 17:03 VBG O2 Saturation 87.6 % 09/19/18 17:03 VBG Base Excess 3.5 mEq/L 09/19/18 17:03 Barometric Pressure 729.7 mm/Hg 09/19/18 17:03 Sodium 135 mmol/L (136-145) L 09/19/18 16:57 Potassium 4.0 mmol/L (3.5-5.1) 09/19/18 16:57 Chloride 100 mmol/L (98-107) 09/19/18 16:57 Carbon Dioxide 26 mmol/L (21-32) 09/19/18 16:57 Anion Gap 9.0 (3-11) 09/19/18 16:57 BUN 20 mg/dl (7-18) H 09/19/18 16:57 Creatinine 0.75 mg/dl (0.6-1.2) 09/19/18 16:57 Est Cr Clr Drug Dosing 77.2 ml/min 09/19/18 16:57 Est GFR ( Amer) 93.6 09/19/18 16:57 Est GFR (Non-Af Amer) 80.8 09/19/18 16:57 BUN/Creatinine Ratio 26.3 (10-20) H 09/19/18 16:57 Glucose 123 mg/dl (70-99) H 09/19/18 16:57 POC Glucose 190 (70-99) H 09/19/18 20:27 Lactate 1.5 mmol/L (0.4-2.0) 09/19/18 16:57 Calcium 9.2 mg/dl (8.5-10.1) 09/19/18 16:57 Magnesium 1.8 mg/dl (1.8-2.4) 09/19/18 16:57 Total Bilirubin 0.4 mg/dl (0.2-1) 09/19/18 16:57 Direct Bilirubin 0.1 mg/dl (0-0.2) 09/19/18 16:57 AST 6 U/L (15-37) L 09/19/18 16:57 ALT 10 U/L (12-78) L 09/19/18 16:57 Alkaline Phosphatase 73 U/L (45-117) 09/19/18 16:57 Troponin I < 0.015 ng/ml (0-0.045) 09/19/18 16:57 NT-Pro-B Natriuret Pep 359 pg/ml (0-900) 09/19/18 16:57 Total Protein 8.0 gm/dl (6.4-8.2) 09/19/18 16:57 Albumin 3.2 gm/dl (3.4-5.0) L 09/19/18 16:57 Lipase 79 U/L (73-393) 09/19/18 16:57 Urine Color Dark Yellow 09/19/18 17:36 Urine Appearance Clear (Clear) 09/19/18 17:36 Urine pH 5.0 (4.5-7.5) 09/19/18 17:36 Ur Specific [place] 1.021 (1.000-1.030) 09/19/18 17:36 Urine Protein Negative (Negative) 09/19/18 17:36 Urine Glucose (UA) Negative (Negative) 09/19/18 17:36 Urine Ketones Trace (Negative) H 09/19/18 17:36 Urine Blood Negative (Negative) 09/19/18 17:36 Urine Nitrite Negative (Negative) 09/19/18 17:36 Urine Bilirubin Negative (Negative) 09/19/18 17:36 Urine Urobilinogen Negative (Negative) 09/19/18 17:36 Ur Leukocyte Esterase Trace (Negative) H 09/19/18 17:36 Urine WBC (Auto) 1-5 /hpf (0-5) 09/19/18 17:36 Urine RBC (Auto) 0-4 /hpf (0-4) 09/19/18 17:36 U Hyaline Cast (Auto) 5-10 /lpf (0-5) H 09/19/18 17:36 U Epithel Cells (Auto) >30 /lpf (0-5) H 09/19/18 17:36 Urine Bacteria (Auto) Negative (Negative) 09/19/18 17:36 Urine Crystals Not Reportable 09/19/18 17:36 Calcium Oxalate Crystal Present (None Prsent) H 09/19/18 17:36 Influenza Type A (PCR) Neg for Influ A (Neg) 09/19/18 16:56 Influenza Type B (PCR) Neg for Influ B (Neg) 09/19/18 16:56 Diagnostic Findings CXR IMPRESSION: Cardiomegaly with no acute cardiopulmonary abnormality Code Status & VTE Plan VTE Prophylaxis Plan VTE Prophylaxis will be ordered: Yes Supervising Physician Co-Signing Physician Notes Care coordinated with Татьяна Christianson NP. Agree with able note. Patient seen and examined. Please refer to her notes for full details. Vital signs reviewed. Physical exam: General exam: Alert and oriented. Not in acute distress. CVS: S1 and S2 heard, regular rate and rhythm, no murmurs. RS: Clear to auscultation, mild occasional wheezing no crackles. ABD: Soft, bowel sounds present, nontender, no distention. [employer]ODUCT [employer]IST: Nonfocal. EXT: No edema, no erythema. Labs: Reviewed. Assessment and plan: 68F with hx of copd, nocturnal hypoxia, rcent hx of influenza presents with sob and cough and weakbness going on for about a week Copd ex hypoxia cxr unremarkable flu negative hypoxia on presentation steroids, nebs oxygen, po doxycline and monitor response two step prior to discharge DM' will monitor while on steroids Other diagnosis and plan of care as per Татьяна Christianson NP.. Thad gaviria MD.
[2018-09-19] MEDS: predniSONE 20 MG TAB PO SCH (21:29)
[2018-09-19] MEDS: [UNRECOGNIZED DRUG - OTHER] SCH (21:29)
--- NOTE | 2018-09-19 23:42 | Emergency Department Note ---
Entered by Bharati Oliva acting as a scribe for History of Present Illness General Chief complaint: Cough Stated complaint: COUGHING, WEAKNESS, SORE THROAT Time Seen by Provider: 09/19/18 16:29 Source: patient Mode of arrival: ambulatory Limitations: no limitations History of Present Illness Provider complaint: cough Onset (ago): day(s) 2 Location: chest Pain Consistency: + other (persitent) Quality: + other (productive) Associated symptoms: + denies other symptoms (hemoptysis) and + shortness of breath; no fever/chills Treatments prior to arrival: other (nasal cannula oxygen) The patient is a 68 year old female who presents to the Emergency Room with complaints of a persistent cough that began 2 days ago. The patient reports that she has had difficulty swallowing as well and notes she feels as if her throat is swollen. She denies any fevers of hemoptysis. She also denies using any inhalers at home, stating she cannot afford them. She states that she does have a history of COPD and uses nasal cannula oxygen at night but that she did use it earlier this afternoon secondary to shortness of breath. She reports that she does have diabetes but denies any heart disease history. Home Medications Home Medications Medication Instructions Recorded Confirmed Type allopurinol 300 mg PO BID 08/01/18 09/19/18 History divalproex 1,000 mg PO HS 08/01/18 09/19/18 History furosemide 40 mg PO DAILY 08/01/18 09/19/18 History metformin 1,000 mg PO BID 08/01/18 09/19/18 History montelukast 10 mg PO DAILY PRN 08/01/18 09/19/18 History sertraline 25 mg PO DAILY 08/01/18 09/19/18 History trazodone 100 mg PO HS 08/01/18 09/19/18 History aspirin 81 mg PO QAM 08/02/18 09/19/18 History fesoterodine [Toviaz] 8 mg PO DAILY 09/19/18 09/19/18 History lisinopril 5 mg PO DAILY 09/19/18 09/19/18 History rosuvastatin 20 mg PO HS 09/19/18 09/19/18 History Allergies Allergy/AdvReac Type Severity Reaction Status Date / Time Bactrim Allergy Unknown . Verified 04/27/17 09:17 Sulfa (Sulfonamide Allergy Unknown "SULFA = Verified 09/19/18 17:52 Antibiotics) HIVES" sulfamethoxazole Allergy Unknown . Verified 09/19/18 17:52 trimethoprim Allergy Unknown . 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 and A total of 10 systems reviewed and were otherwise negative Physical Exam Vital Signs Vital Signs - 24 hr 09/19/18 15:28 09/19/18 17:08 09/19/18 17:42 Temperature 36.7 C Temperature Source Oral Sepsis Recent Fever Within 48 Hours No Sepsis Action Taken by Nursing No Action Required Pulse Rate 70 Pulse Rate [Right Radial] Pulse Strength Normal Respiratory Rate 18 Respiratory Rate [Exercises] 28 H Respiratory Effort / Characteristics Non-Labored Respiratory Depth Normal Respiratory Pattern Blood Pressure 120/83 Blood Pressure [Left Arm] Blood Pressure Mean 95 Blood Pressure Mean [Left Arm] Blood Pressure Position Lying Blood Pressure Position [Left Arm] Pulse Oximetry 91 88 L Pulse Oximetry [Exercises] 84 L Oxygen Delivery Method Room Air Room Air Room Air Oxygen Flow Rate 09/19/18 19:53 09/19/18 20:21 09/19/18 20:48 Temperature 36.8 C Temperature Source Oral Sepsis Recent Fever Within 48 Hours Sepsis Action Taken by Nursing Pulse Rate 96 H 99 H Pulse Rate [Right Radial] 101 H 86 Pulse Strength Respiratory Rate 23 20 18 Respiratory Rate [Exercises] Respiratory Effort / Characteristics Non-Labored SOB on Exertion Non-Labored Spontaneous Respiratory Depth Normal Respiratory Pattern Regular Blood Pressure 144/82 H Blood Pressure [Left Arm] 141/79 H Blood Pressure Mean Blood Pressure Mean [Left Arm] 99 Blood Pressure Position Blood Pressure Position [Left Arm] Sitting Pulse Oximetry 95 91 95 Pulse Oximetry [Exercises] Oxygen Delivery Method Nasal Cannula Nasal Cannula Nasal Cannula Oxygen Flow Rate 2 2 4 09/19/18 23:13 09/19/18 23:29 Temperature 36.6 C Temperature Source Oral Sepsis Recent Fever Within 48 Hours Sepsis Action Taken by Nursing Pulse Rate 85 Pulse Rate [Right Radial] 93 H Pulse Strength Respiratory Rate 20 Respiratory Rate [Exercises] Respiratory Effort / Characteristics Respiratory Depth Respiratory Pattern Blood Pressure Blood Pressure [Left Arm] 147/83 H Blood Pressure Mean Blood Pressure Mean [Left Arm] 104 Blood Pressure Position Blood Pressure Position [Left Arm] Lying Pulse Oximetry 96 Pulse Oximetry [Exercises] Oxygen Delivery Method Room Air Oxygen Flow Rate GENERAL: She is oriented to person, place, and time. She appears well-developed and well-nourished. She does not appear distressed. HENT: Exam performed. Head: Normocephalic and atraumatic. Right Ear: External ear normal. No mastoid tenderness. Left Ear: External ear normal. No mastoid tenderness. Mouth/Throat: The oropharynx is clear and moist. No trismus in the jaw. No dental abscesses or uvula swelling. No oropharyngeal exudate or tonsillar abscesses. EYES: Conjunctivae and EOM are normal. Pupils are equal, round, and reactive to light. Right eye exhibits no discharge. Left eye exhibits no discharge. No scleral icterus. NECK: Normal range of motion. Neck supple. No JVD present. No spinous process tenderness present. No carotid bruit present. No rigidity. No tracheal deviation and normal range of motion present. No Brudzinski's sign and no Kernig's sign noted. CV: Normal rate, regular rhythm, normal heart sounds and intact distal pulses. There is no peripheral edema. Palpable radial pulses bue. PULM/CHEST: Diminished breath sounds bilaterally. No respiratory distress. No stridor. She has no wheezes. She has no rales. Chest Wall: She exhibits no tenderness. ABD: The abdomen is soft. Bowel sounds are normal. She has no distension. No mass is present. There is no tenderness. There is no rebound, no guarding, no Solorio's sign and no tenderness at McBurney's point. Rovsig negative MUSC/SKEL: Normal range of motion. There is no peripheral edema, tenderness or deformity. LYMPH: No cervical adenopathy. NEURO: She is alert and oriented to person, place, and time. She has normal strength. No cranial nerve deficit or sensory deficit. Coordination and gait normal. GCS eye subscore is 4. GCS verbal subscore is 5. GCS motor subscore is 6. cerbellar tests wnl. SKIN: Skin is warm and dry. She is not diaphoretic. PSYCH: She has a normal mood and affect. Her behavior is normal. Judgment and thought content normal. Course 1634: Past medical records reviewed. The patient was evaluated in room D1B, and a complete history and physical examination were performed. Patient was admitted and placed on the cardiac cath technologist and found to have a low oxygen saturation of 87% on room air. Patient states she does not usually wear oxygen at home during the daytime, only at night. 1733: The patient reports minimal improvement after breathing treatment but is feeling better with oxygen. Labs show leukocytosis of 18 and lactic acid within normal limits. 1826: Vital signs stable on nasal cannula. Patient continues to have wheezing. Labs show leukocytosis of 18.78. X-ray within normal limits. It is thought that the patient is suffering from a COPD exacerbation given she is not been taking her inhalers at home due to cost and is using more oxygen along with the persistent wheezing. Patient will be given repeat DuoNeb treatment. We will plan on admitting the patient. I reviewed the patient's case with GREY Davidson - [facility] Hospitalist. She will evaluate the patient for further management. She states to admit to Dr. Salcido's service. Administered Medications Albuterol (Duoneb) 3 ml NEB QIDR [facility] Stop: 10/19/18 20:20 Last Admin: 09/19/18 20:45 Dose: 3 ml Documented by: [id number] Allopurinol (Zyloprim) 300 mg PO BID [facility] Stop: 10/19/18 20:59 Last Admin: 09/19/18 21:09 Dose: 300 mg Documented by: [id number] Divalproex Sodium (Depakote Extended Release) 1,000 mg PO HS [facility] Stop: 10/19/18 20:59 Last Admin: 09/19/18 21:09 Dose: 1,000 mg Documented by: [id number] Enoxaparin Sodium (Lovenox) 40 mg SQ Q24H [facility] Stop: 10/19/18 20:59 Last Admin: 09/19/18 21:10 Dose: 40 mg Documented by: [id number] Doxycycline Hyclate 100 mg/ (Dextrose) 110 mls @ 50 mls/hr IV Q12H [facility]; Protocol Stop: 09/26/18 19:29 Last Infusion: 09/19/18 22:57 Dose: 0 mls/hr Documented by: [id number] Admin: 09/19/18 20:28 Dose: 50 mls/hr Documented by: [id number] Sodium Chloride (Nss 1000ml) 1,000 mls @ 80 mls/hr IV .[id number] [facility] Stop: 10/19/18 19:29 Last Admin: 09/19/18 20:28 Dose: 80 mls/hr Documented by: [id number] Insulin Aspart (Novolog Flexpen) 0 units SC ACHS [facility] Stop: 10/19/18 20:59 Last Admin: 09/19/18 21:11 Dose: 4 units Documented by: [id number] Cosigned by: [id number] Miscellaneous (Order Awaiting Action) 1 ea N/A QS [facility] Stop: 10/20/18 00:00 Last Admin: 09/19/18 21:29 Dose: Not Given Documented by: [id number] Prednisone (Prednisone) 40 mg PO DAILY [facility] Stop: 09/23/18 09:01 Last Admin: 09/19/18 21:29 Dose: 40 mg Documented by: [id number] Rosuvastatin Calcium (Crestor) 20 mg PO [facility] Stop: 10/19/18 20:59 Last Admin: 09/19/18 21:09 Dose: 20 mg Documented by: [id number] Fluticasone/Salmeterol (Advair Diskus 250/50) 1 puffs INH BID [facility] Stop: 10/19/18 20:59 Last Admin: 09/19/18 21:08 Dose: 1 puffs Documented by: [id number] Trazodone HCl (Desyrel) 100 mg PO [facility] Stop: 10/19/18 20:59 Last Admin: 09/19/18 21:09 Dose: 100 mg Documented by: [id number] Discontinued Medications Albuterol (Duoneb) 3 ml NEB NOW STA Stop: 09/19/18 16:36 Last Admin: 09/19/18 17:08 Dose: 3 ml Documented by: [id number] Albuterol (Duoneb) 3 ml NEB NOW STA Stop: 09/19/18 18:32 Last Admin: 09/19/18 18:41 Dose: 3 ml Documented by: [id number] Medical Decision Making Medical Records Attestation: I reviewed the patient's medical records. Home Medications Current Medication List: was personally reviewed by me Laboratory Data Attestation: I reviewed the patient's lab results. Result diagrams: 09/19/18 16:57 09/19/18 16:57 Lab Results 09/19/18 09/19/18 09/19/18 Range/Units 16:46 16:56 16:57 WBC 18.78 H (4.8-10.8) K/uL RBC 4.44 (4.2-5.4) M/uL Hgb 13.7 (12.0-16.0) g/dL Hct 41.4 (37-47) % MCV 93.2 (80-100) fL MCH 30.9 (25-34) pg MCHC 33.1 (32-36) g/dL RDW Std Deviation 55.6 H (36.4-46.3) fL RDW Coeff of Yahaira 16.3 H (11.5-14.5) % Plt Count 260 (130-400) K/uL MPV 9.7 (7.4-10.4) fL Immature Gran % (Auto) 2.5 % Neut % (Auto) 67.1 % Lymph % (Auto) 19.2 % [place] % (Auto) 10.8 % Eos % (Auto) 0.1 % Baso % (Auto) 0.3 % Immature Gran # (Auto) 0.47 H (0.00-0.02) K/uL Neut # (Auto) 12.59 H (1.4-6.5) K/uL Lymph # (Auto) 3.61 H (1.2-3.4) K/uL [place] # (Auto) 2.03 H (0.11-0.59) K/uL Eos # (Auto) 0.02 (0-0.5) K/uL Baso # (Auto) 0.06 (0-0.2) K/uL Absolute Nucleated RBC 0.02 H (0-0) K/uL Nucleated RBC % (auto) 0.1 % VBG pH Cancelled VBG pCO2 Cancelled VBG pO2 Cancelled VBG HCO3 Cancelled VBG O2 Saturation Cancelled VBG Base Excess Cancelled Barometric Pressure Cancelled Sodium (136-145) mmol/L Potassium (3.5-5.1) mmol/L Chloride (98-107) mmol/L Carbon Dioxide (21-32) mmol/L Anion Gap (3-11) BUN (7-18) mg/dl Creatinine (0.6-1.2) mg/dl Est Cr Clr Drug Dosing ml/min Est GFR ( Amer) Est GFR (Non-Af Amer) BUN/Creatinine Ratio (10-20) Glucose (70-99) mg/dl POC Glucose (70-99) Lactate (0.4-2.0) mmol/L Calcium (8.5-10.1) mg/dl Magnesium (1.8-2.4) mg/dl Total Bilirubin (0.2-1) mg/dl Direct Bilirubin (0-0.2) mg/dl AST (15-37) U/L ALT (12-78) U/L Alkaline Phosphatase (45-117) U/L Troponin I (0-0.045) ng/ml NT-Pro-B Natriuret Pep (0-900) pg/ml Total Protein (6.4-8.2) gm/dl Albumin (3.4-5.0) gm/dl Lipase (73-393) U/L Urine Color Urine Appearance (Clear) Urine pH (4.5-7.5) Ur Specific [place] (1.000-1.030) Urine Protein (Negative) Urine Glucose (UA) (Negative) Urine Ketones (Negative) Urine Blood (Negative) Urine Nitrite (Negative) Urine Bilirubin (Negative) Urine Urobilinogen (Negative) Ur Leukocyte Esterase (Negative) Urine WBC (Auto) (0-5) /hpf Urine RBC (Auto) (0-4) /hpf U Hyaline Cast (Auto) (0-5) /lpf U Epithel Cells (Auto) (0-5) /lpf Urine Bacteria (Auto) (Negative) Urine Crystals Calcium Oxalate Crystal (None Prsent) Influenza Type A (PCR) Neg for Influ A (Neg) Influenza Type B (PCR) Neg for Influ B (Neg) 09/19/18 09/19/18 09/19/18 Range/Units 16:57 16:57 17:03 WBC (4.8-10.8) K/uL RBC (4.2-5.4) M/uL Hgb (12.0-16.0) g/dL Hct (37-47) % MCV (80-100) fL MCH (25-34) pg MCHC (32-36) g/dL RDW Std Deviation (36.4-46.3) fL RDW Coeff of Yahaira (11.5-14.5) % Plt Count (130-400) K/uL MPV (7.4-10.4) fL Immature Gran % (Auto) % Neut % (Auto) % Lymph % (Auto) % [place] % (Auto) % Eos % (Auto) % Baso % (Auto) % Immature Gran # (Auto) (0.00-0.02) K/uL Neut # (Auto) (1.4-6.5) K/uL Lymph # (Auto) (1.2-3.4) K/uL [place] # (Auto) (0.11-0.59) K/uL Eos # (Auto) (0-0.5) K/uL Baso # (Auto) (0-0.2) K/uL Absolute Nucleated RBC (0-0) K/uL Nucleated RBC % (auto) % VBG pH 7.42 H VBG pCO2 45 VBG pO2 53 VBG HCO3 29 VBG O2 Saturation 87.6 VBG Base Excess 3.5 Barometric Pressure 729.7 Sodium 135 L (136-145) mmol/L Potassium 4.0 (3.5-5.1) mmol/L Chloride 100 (98-107) mmol/L Carbon Dioxide 26 (21-32) mmol/L Anion Gap 9.0 (3-11) BUN 20 H (7-18) mg/dl Creatinine 0.75 (0.6-1.2) mg/dl Est Cr Clr Drug Dosing 77.2 ml/min Est GFR ( Amer) 93.6 Est GFR (Non-Af Amer) 80.8 BUN/Creatinine Ratio 26.3 H (10-20) Glucose 123 H (70-99) mg/dl POC Glucose (70-99) Lactate 1.5 (0.4-2.0) mmol/L Calcium 9.2 (8.5-10.1) mg/dl Magnesium 1.8 (1.8-2.4) mg/dl Total Bilirubin 0.4 (0.2-1) mg/dl Direct Bilirubin 0.1 (0-0.2) mg/dl AST 6 L (15-37) U/L ALT 10 L (12-78) U/L Alkaline Phosphatase 73 (45-117) U/L Troponin I < 0.015 (0-0.045) ng/ml NT-Pro-B Natriuret Pep 359 (0-900) pg/ml Total Protein 8.0 (6.4-8.2) gm/dl Albumin 3.2 L (3.4-5.0) gm/dl Lipase 79 (73-393) U/L Urine Color Urine Appearance (Clear) Urine pH (4.5-7.5) Ur Specific [place] (1.000-1.030) Urine Protein (Negative) Urine Glucose (UA) (Negative) Urine Ketones (Negative) Urine Blood (Negative) Urine Nitrite (Negative) Urine Bilirubin (Negative) Urine Urobilinogen (Negative) Ur Leukocyte Esterase (Negative) Urine WBC (Auto) (0-5) /hpf Urine RBC (Auto) (0-4) /hpf U Hyaline Cast (Auto) (0-5) /lpf U Epithel Cells (Auto) (0-5) /lpf Urine Bacteria (Auto) (Negative) Urine Crystals Calcium Oxalate Crystal (None Prsent) Influenza Type A (PCR) (Neg) Influenza Type B (PCR) (Neg) 09/19/18 09/19/18 Range/Units 17:36 20:27 WBC (4.8-10.8) K/uL RBC (4.2-5.4) M/uL Hgb (12.0-16.0) g/dL Hct (37-47) % MCV (80-100) fL MCH (25-34) pg MCHC (32-36) g/dL RDW Std Deviation (36.4-46.3) fL RDW Coeff of Yahaira (11.5-14.5) % Plt Count (130-400) K/uL MPV (7.4-10.4) fL Immature Gran % (Auto) % Neut % (Auto) % Lymph % (Auto) % [place] % (Auto) % Eos % (Auto) % Baso % (Auto) % Immature Gran # (Auto) (0.00-0.02) K/uL Neut # (Auto) (1.4-6.5) K/uL Lymph # (Auto) (1.2-3.4) K/uL [place] # (Auto) (0.11-0.59) K/uL Eos # (Auto) (0-0.5) K/uL Baso # (Auto) (0-0.2) K/uL Absolute Nucleated RBC (0-0) K/uL Nucleated RBC % (auto) % VBG pH VBG pCO2 VBG pO2 VBG HCO3 VBG O2 Saturation VBG Base Excess Barometric Pressure Sodium (136-145) mmol/L Potassium (3.5-5.1) mmol/L Chloride (98-107) mmol/L Carbon Dioxide (21-32) mmol/L Anion Gap (3-11) BUN (7-18) mg/dl Creatinine (0.6-1.2) mg/dl Est Cr Clr Drug Dosing ml/min Est GFR ( Amer) Est GFR (Non-Af Amer) BUN/Creatinine Ratio (10-20) Glucose (70-99) mg/dl POC Glucose 190 H (70-99) Lactate (0.4-2.0) mmol/L Calcium (8.5-10.1) mg/dl Magnesium (1.8-2.4) mg/dl Total Bilirubin (0.2-1) mg/dl Direct Bilirubin (0-0.2) mg/dl AST (15-37) U/L ALT (12-78) U/L Alkaline Phosphatase (45-117) U/L Troponin I (0-0.045) ng/ml NT-Pro-B Natriuret Pep (0-900) pg/ml Total Protein (6.4-8.2) gm/dl Albumin (3.4-5.0) gm/dl Lipase (73-393) U/L Urine Color Dark Yellow Urine Appearance Clear (Clear) Urine pH 5.0 (4.5-7.5) Ur Specific [place] 1.021 (1.000-1.030) Urine Protein Negative (Negative) Urine Glucose (UA) Negative (Negative) Urine Ketones Trace H (Negative) Urine Blood Negative (Negative) Urine Nitrite Negative (Negative) Urine Bilirubin Negative (Negative) Urine Urobilinogen Negative (Negative) Ur Leukocyte Esterase Trace H (Negative) Urine WBC (Auto) 1-5 (0-5) /hpf Urine RBC (Auto) 0-4 (0-4) /hpf U Hyaline Cast (Auto) 5-10 H (0-5) /lpf U Epithel Cells (Auto) >30 H (0-5) /lpf Urine Bacteria (Auto) Negative (Negative) Urine Crystals Not Reportable Calcium Oxalate Crystal Present H (None Prsent) Influenza Type A (PCR) (Neg) Influenza Type B (PCR) (Neg) Imaging Data Radiologist's Impression: Radiology results as stated below per my review and the radiologist's interpretation: TWO VIEW CHEST CLINICAL HISTORY: Dyspnea. FINDINGS: PA and lateral chest radiographs are compared to study dated 08/01/2018 and correlated with chest CT dated 07/13/2015. The PA view is degraded by patient rotation. The heart is enlarged and there is atherosclerotic calcification of the thoracic aorta. The pulmonary vasculature is noncongested. There is chronic elevation of the right hemidiaphragm with associated right basilar atelectasis. No airspace consolidation or pleural effusion is identified. There is no pneumothorax. The skeletal structures are osteopenic. Degenerative change is noted throughout the thoracic spine. There are numerous healed left-sided rib fractures. IMPRESSION: Cardiomegaly with no acute cardiopulmonary abnormality. Electronically signed by: Rufus Soto M.D. 09/19/2018 5:27 PM ECG Data Attestation: I personally reviewed and interpreted this ECG as follows: Indication: SOB/dyspnea Rate (beats per minute): 93 Rhythm: sinus rhythm Findings: + other (QRS, QTC and QT intervals within normal limits. ); no ST depression and no ST elevation Blood Pressure Blood Pressure Findings: Normal blood pressure Blood Pressure Disposition: did not require urgent referral MDM Narrative 1634: Past medical records reviewed. The patient was evaluated in room D1B, and a complete history and physical examination were performed. Patient was admitted and placed on the cardiac cath technologist and found to have a low oxygen saturation of 87% on room air. Patient states she does not usually wear oxygen at home during the daytime, only at night. 1733: The patient reports minimal improvement after breathing treatment but is feeling better with oxygen. Labs show leukocytosis of 18 and lactic acid within normal limits. 1826: Vital signs stable on nasal cannula. Patient continues to have wheezing. Labs show leukocytosis of 18.78. X-ray within normal limits. It is thought that the patient is suffering from a COPD exacerbation given she is not been taking her inhalers at home due to cost and is using more oxygen along with the persistent wheezing. Patient will be given repeat DuoNeb treatment. We will plan on admitting the patient. I reviewed the patient's case with GREY Davidson [facility] Hospitalist. She will evaluate the patient for further management. She states to admit to Dr. Salcido's service. Impression & Plan Hypoxia, COPD exacerbation Discharge Plan Visit Data *Final* Discharge Date/Time: 09/19/18 19:53 Chief Complaint: Cough Stated Complaint: COUGHING, WEAKNESS, SORE THROAT ED Provider: Fidencio Roach Discharge Problem: Hypoxia, COPD exacerbation Patient Disposition: Admitted As Inpatient Discharge Instructions Interventions: ED Discharge Assessment Last Done: 09/19/18 19:53 The scribe's documentation has been prepared under my direction and personally reviewed by me in its entirety. I confirm that the note above accurately reflects all work, treatment, procedures, and medical decision making performed by me.
[2018-09-20] MEDS: ALBUT/IPRATROP 3MG/0.5MG NEB 3 ML VIAL NEB SCH ×4 (07:00→20:13)
[2018-09-20] MEDS: [UNRECOGNIZED DRUG - OTHER] SCH ×2 (08:13→14:43)
[2018-09-20] MEDS: ASPIRIN 81 MG ECTAB PO SCH (08:15)
[2018-09-20] MEDS: FLUTICASONE/SALMETEROL 250/50 (ADVAIR) 14 PUFF/1 INHALER INH SCH ×2 (08:15→20:22)
[2018-09-20] MEDS: SODIUM CHLORIDE 0.9% 1000ML 1,000 ML IV SCH (08:15)
[2018-09-20] MEDS: DOXYCYCLINE HYCLATE 100 MG in DEXTROSE 5% 100 ML IV SCH ×2 (08:15→20:17)
[2018-09-20] MEDS: LISINOPRIL 5 MG TAB PO SCH (08:15)
[2018-09-20] MEDS: SERTRALINE HCL 50 MG TABLET PO SCH (08:16)
[2018-09-20] MEDS: ALLOPURINOL 300 MG TAB PO SCH ×2 (08:16→20:24)
[2018-09-20 08:17] LABS: Hematocrit (blood only) 40.3 % (37-47); Hemoglobin 13.7 g/dL (12.0-16.0); Mean Corpuscular Volume 94.2 fL (80-100); Mean Platelet Volume 9.6 fL (7.4-10.4); Platelet Count 250 K/uL (130-400); RDW Coefficient of Variation 16.2 % (11.5-14.5); RDW Standard Deviation 55.2 fL (36.4-46.3); Red Blood Count 4.28 M/uL (4.2-5.4); White Blood Count 14.84 K/uL (4.8-10.8)
[2018-09-20] MEDS: INSULIN ASPART 100 UNITS/ML 3 ML PEN SC SCH ×4 (08:17→20:38)
[2018-09-20 08:50] LABS: BUN Creatinine Ratio 25.5 (10-20); Calcium 9.9 mg/dl (8.5-10.1); Creatinine Clr Calc Pharmacy 79.3 ml/min; Est GFR (African American) 96.7; Est GFR (Non-African American) 83.4; Potassium 4.3 mmol/L (3.5-5.1)
[2018-09-20] MEDS: predniSONE 20 MG TAB PO SCH (09:04)
--- NOTE | 2018-09-20 09:04 | XRay Report ---
XR chest 2V routine CLINICAL HISTORY: 68 years-old Female presenting with hypoxia. TECHNIQUE: PA and lateral views of the chest were obtained. COMPARISON: 09/19/2018. FINDINGS: Atherosclerosis of the aortic arch. Cardiac silhouette enlarged. Slight increased prominence of the b ilateral elicia, likely vascular. Persistent elevation of the right hemidiaphragm with right basilar op acity. Osteopenia may be present. Degenerative changes of the spine. Several overlying external leads noted. IMPRESSION: 1. Cardiomegaly with increasing hilar prominence, likely indicating developing volume overload. 2. Persistent right basilar atelectasis. Electronically signed by: Christopher Sparrow M.D. 09/20/2018 9:03 AM
[2018-09-20] MEDS ORDERED: NovoLIN-N (NPH) PER UNIT CHARGE SQ ONE (15:00)
--- NOTE | 2018-09-20 19:35 | Hospitalist Progress Note ---
Date of Service September 20, 2018 Assessment & Plan (1) Acute on chronic respiratory failure with hypoxia: (2) COPD exacerbation: Present on admission with cough and SOB CXR showed cardiomegaly with increasing hilar prominence, likely indicating developing volume overload. Influenza PCR negative WBC trending down Continue doxycycline and prednisone Continue oxygen supplement Continue nebulizer (3) Diabetes mellitus: Hgb A1c 7.6 09/16/18 Hold oral agents and utilize NovoLog per protocol while hospitalized Monitor blood sugars closely while on steroids (4) HTN (hypertension): Continue lisinopril will resume Lasix BP stable (5) Dyslipidemia: Continue statin (6) Gout: Continue allopurinol (7) Depression: Continue sertraline, trazodone, Depakote (8) DVT prophylaxis: SQ Lovenox CODE STATUS FULL CODE Subjective Pt was seen and examined Sitting at the edge of the bed with no distress Pt said that she continues to cough She said that she is having SOB with minimal exertion Physical Exam Vital Signs (Past 24 Hours): Last Vital Signs Temp 36.7 C 09/20/18 15:40 Pulse 84 09/20/18 15:42 Resp 20 09/20/18 15:40 BP 115/71 09/20/18 15:40 Pulse Ox 96 09/20/18 15:40 Physical Exam: General- No acute distress Head- atraumatic Eyes- PERRL, EOMI, ENT- oropharynx clear Neck- supple, no JVD Lungs- +coarse BS Heart- regular rhythm; no murmur Abdomen- normal bowel sounds, soft, nontender Extremities- no calf tenderness Neuro- alert, oriented x 3; PERRL, EOMI; no facial palsy; no dysarthria Skin- warm & dry
[2018-09-20] MEDS: ENOXAPARIN INJ 40 MG/0.4 ML SYR SQ SCH (20:22)
[2018-09-20] MEDS: DIVALPROEX EXTENDED RELEASE 500 MG TAB PO SCH (20:23)
[2018-09-20] MEDS: MONTELUKAST SODIUM 10 MG TABLET PO SCH (20:23)
[2018-09-20] MEDS: ROSUVASTATIN CALCIUM 20 MG TAB PO SCH (20:23)
[2018-09-20] MEDS: TRAZODONE HCL 50 MG TAB PO SCH (20:24)
[2018-09-21] MEDS: [UNRECOGNIZED DRUG - OTHER] SCH ×4 (00:15→23:49)
[2018-09-21] MEDS ORDERED: COUGH DROP (SUGAR FREE) LOZ 24 LOZ/1 BOX BUCCAL PRN (00:31)
[2018-09-21] MEDS ORDERED: COUGH DROP (SUGAR FREE) LOZ 24 LOZ/1 BOX BUCCAL ONE (00:33)
[2018-09-21] MEDS: ALBUT/IPRATROP 3MG/0.5MG NEB 3 ML VIAL NEB SCH ×4 (07:15→19:51)
[2018-09-21] MEDS: FLUTICASONE/SALMETEROL 250/50 (ADVAIR) 14 PUFF/1 INHALER INH SCH ×2 (07:39→20:32)
[2018-09-21] MEDS: predniSONE 20 MG TAB PO SCH (07:40)
[2018-09-21] MEDS: ALLOPURINOL 300 MG TAB PO SCH ×2 (07:40→20:32)
[2018-09-21] MEDS: LISINOPRIL 5 MG TAB PO SCH (07:41)
[2018-09-21] MEDS: ASPIRIN 81 MG ECTAB PO SCH (07:41)
[2018-09-21] MEDS: SERTRALINE HCL 50 MG TABLET PO SCH (07:41)
[2018-09-21] MEDS: NovoLIN-N (NPH) PER UNIT CHARGE SQ SCH (07:44)
[2018-09-21] MEDS: DOXYCYCLINE HYCLATE 100 MG in DEXTROSE 5% 100 ML IV SCH ×2 (07:47→21:19)
[2018-09-21] MEDS: INSULIN ASPART 100 UNITS/ML 3 ML PEN SC SCH ×4 (08:53→20:54)
[2018-09-21] MEDS ORDERED: ACETYLCYSTEINE 10% INHAL SOLN **DISPENSED FROM RESP. INH SCH (12:30)
[2018-09-21] MEDS: ACETYLCYSTEINE 10% INHAL SOLN **DISPENSED FROM RESP. INH SCH (19:50)
[2018-09-21] MEDS ORDERED: BENZONATATE 100 MG CAPSULE PO PRN (20:09)
--- NOTE | 2018-09-21 20:09 | Hospitalist Progress Note ---
Date of Service September 21, 2018 Assessment & Plan (1) Acute on chronic respiratory failure with hypoxia: (2) COPD exacerbation: Present on admission with cough and SOB CXR showed cardiomegaly with increasing hilar prominence, likely indicating developing volume overload. Influenza PCR negative WBC trending down Continue doxycycline and prednisone Continue oxygen supplement Continue nebulizer Will add mucomyst BID (3) Diabetes mellitus: Hgb A1c 7.6 09/16/18 Hold oral agents and utilize NovoLog per protocol while hospitalized Monitor blood sugars closely while on steroids (4) HTN (hypertension): Continue lisinopril will resume Lasix BP stable (5) Dyslipidemia: Continue statin (6) Gout: Continue allopurinol (7) Depression: Continue sertraline, trazodone, Depakote (8) DVT prophylaxis: SQ Lovenox CODE STATUS FULL CODE Subjective Pt was seen and examined Sitting in chair with no distress Pt said that breathing a little improves She said that she did not sleep well last night because she was coughing all night Denies any chest pain, palpitation and fever Physical Exam Vital Signs (Past 24 Hours): Last Vital Signs Temp 36.8 C 09/21/18 20:03 Pulse 80 09/21/18 20:03 Resp 20 09/21/18 20:03 BP 158/84 H 09/21/18 20:03 Pulse Ox 94 09/21/18 20:03 Physical Exam: General- No acute distress Head- atraumatic Eyes- PERRL, EOMI, ENT- oropharynx clear Neck- supple, no JVD Lungs- +coarse BS Heart- regular rhythm; no murmur Abdomen- normal bowel sounds, soft, nontender Extremities- no calf tenderness Neuro- alert, oriented x 3; PERRL, EOMI; no facial palsy; no dysarthria Skin- warm & dry
[2018-09-21] MEDS ORDERED: ZOLPIDEM TARTRATE 5 MG TAB PO PRN (20:22)
[2018-09-21] MEDS: TRAZODONE HCL 50 MG TAB PO SCH (20:33)
[2018-09-21] MEDS: ROSUVASTATIN CALCIUM 20 MG TAB PO SCH (20:33)
[2018-09-21] MEDS: MONTELUKAST SODIUM 10 MG TABLET PO SCH (20:33)
[2018-09-21] MEDS: DIVALPROEX EXTENDED RELEASE 500 MG TAB PO SCH (20:34)
[2018-09-21] MEDS: ENOXAPARIN INJ 40 MG/0.4 ML SYR SQ SCH (20:35)
[2018-09-21] MEDS: guaiFENesin SUGAR FREE 200 MG/10 ML UDC PO PRN (21:51)
[2018-09-22 05:58] LABS: Hematocrit (blood only) 38.6 % (37-47); Hemoglobin 12.2 g/dL (12.0-16.0); Mean Corpuscular Hgb Conc 31.6 g/dL (32-36); Mean Corpuscular Volume 94.1 fL (80-100); Mean Platelet Volume 9.5 fL (7.4-10.4); Platelet Count 273 K/uL (130-400); RDW Coefficient of Variation 16.3 % (11.5-14.5); RDW Standard Deviation 56.6 fL (36.4-46.3); White Blood Count 11.22 K/uL (4.8-10.8)
[2018-09-22 06:24] LABS: Creatinine Clr Calc Pharmacy 108.7 ml/min; Est GFR (African American) 111.5; Est GFR (Non-African American) 96.2
[2018-09-22] MEDS: ALBUT/IPRATROP 3MG/0.5MG NEB 3 ML VIAL NEB SCH ×5 (06:59→19:37)
[2018-09-22] MEDS: ACETYLCYSTEINE 10% INHAL SOLN **DISPENSED FROM RESP. INH SCH ×3 (06:59→19:38)
[2018-09-22] MEDS: DOXYCYCLINE HYCLATE 100 MG in DEXTROSE 5% 100 ML IV SCH (08:04)
[2018-09-22] MEDS: predniSONE 20 MG TAB PO SCH (08:05)
[2018-09-22] MEDS: ASPIRIN 81 MG ECTAB PO SCH (08:05)
[2018-09-22] MEDS: [UNRECOGNIZED DRUG - OTHER] SCH ×2 (08:05→15:26)
[2018-09-22] MEDS: FLUTICASONE/SALMETEROL 250/50 (ADVAIR) 14 PUFF/1 INHALER INH SCH (08:05)
[2018-09-22] MEDS: SERTRALINE HCL 50 MG TABLET PO SCH (08:06)
[2018-09-22] MEDS: LISINOPRIL 5 MG TAB PO SCH (08:06)
[2018-09-22] MEDS: ALLOPURINOL 300 MG TAB PO SCH (08:06)
[2018-09-22] MEDS: NovoLIN-N (NPH) PER UNIT CHARGE SQ SCH (08:35)
[2018-09-22] MEDS: INSULIN ASPART 100 UNITS/ML 3 ML PEN SC SCH ×3 (08:37→17:46)
[2018-09-22] MEDS: guaiFENesin SUGAR FREE 200 MG/10 ML UDC PO PRN (10:46)
--- NOTE | 2018-09-22 17:25 | Hospitalist Progress Note ---
Date of Service September 22, 2018 Assessment & Plan (1) Acute on chronic respiratory failure with hypoxia: (2) COPD exacerbation: Present on admission with cough and SOB CXR showed cardiomegaly with increasing hilar prominence, likely indicating developing volume overload. Influenza PCR negative WBC trending down Continue doxycycline and prednisone Saturated above 91% on RA Continue home oxygen supplement at night and with exertion Continue nebulizer On mucomyst BID (3) Diabetes mellitus: Hgb A1c 7.6 09/16/18 Hold oral agents and utilize NovoLog per protocol while hospitalized Monitor blood sugars closely while on steroids (4) HTN (hypertension): Continue lisinopril will resume Lasix BP stable (5) Dyslipidemia: Continue statin (6) Gout: Continue allopurinol (7) Depression: Continue sertraline, trazodone, Depakote Morbid Obesity Diet and weight lost (8) DVT prophylaxis: SQ Lovenox CODE STATUS FULL CODE Disposition Possible discharge today Subjective Pt was seen and examined Sitting in chair with no distress Pt said that she feels much better Her cough slightly improves Denies any chest pain, palpitation, dizziness and SOB Physical Exam Vital Signs (Past 24 Hours): Last Vital Signs Temp 36.5 C 09/22/18 15:07 Pulse 83 09/22/18 17:03 Resp 16 09/22/18 17:03 BP 159/83 H 09/22/18 15:07 Pulse Ox 95 09/22/18 17:03 Physical Exam: General- No acute distress Head- atraumatic Eyes- PERRL, EOMI, ENT- oropharynx clear Neck- supple, no JVD Lungs- diminished BS Heart- regular rhythm; no murmur Abdomen- normal bowel sounds, soft, nontender Extremities- no calf tenderness Neuro- alert, oriented x 3; PERRL, EOMI; no facial palsy; no dysarthria Skin- warm & dry
[2018-09-22] MEDS ORDERED: DOXYCYCLINE HYCLATE 100 MG CAP PO SCH (19:10)
[2018-09-22] MEDS ORDERED: ALBUT/IPRATROP 3MG/0.5MG NEB 3 ML VIAL NEB SCH (19:15)
--- NOTE | 2018-09-23 11:55 | Discharge Summary ---
Date of Service September 26, 2018 Admission HPI Per Admitting Provider 68-year-old female who presents to the ED with cough and shortness of breath. Patient was recently admitted to [facility] 08/02 through 08/04 for COPD exacerbation, influenza, suspected pneumonia. She was discharged on courses of prednisone, levaquin, and tamilfu. She reports she felt as though she had completely recovered from that illness. She reports her current symptoms began about one week ago. She reports cough, shortness of breath, and sinus congestion. Cough has been productive for green/yellow sputum. She has shortness of breath with minimal exertion. She typically wears oxygen at night however has been using during the day due to shortness of breath. She is to be using Advair however has not for the past year due to cost. She denies chest pain and palpitations. No lightheadedness, dizziness, diaphoresis, syncopal events. She denies abdominal pain, nausea, vomiting, diarrhea. No fevers or chills. She denies any urinary symptoms. In the ED, ambulatory pulse ox was 84% on room air. Patient is curre ntly requiring 4 L of oxygen via nasal cannula to maintain saturations greater than 92%. WBC 18 K, other labs unremarkable. CXR is negative for acute pulmonary findings. Patient was given nebulizer treatment with improvement in her symptoms. Discharge Data Consultations 09/19/18 18:28 ED Decision to Admit Stat 09/19/18 20:21 Consult Case Management - Discharge Planning Routine
--- NOTE | 2018-09-25 22:18 | Discharge Summary ---
Date of Service September 22, 2018 Admission HPI Per Admitting Provider 68-year-old female who presents to the ED with cough and shortness of breath. Patient was recently admitted to [facility] 08/02 through 08/04 for COPD exacerbation, influenza, suspected pneumonia. She was discharged on courses of prednisone, levaquin, and tamilfu. She reports she felt as though she had completely recovered from that illness. She reports her current symptoms began about one week ago. She reports cough, shortness of breath, and sinus congestion. Cough has been productive for green/yellow sputum. She has shortness of breath with minimal exertion. She typically wears oxygen at night however has been using during the day due to shortness of breath. She is to be using Advair however has not for the past year due to cost. She denies chest pain and palpitations. No lightheadedness, dizziness, diaphoresis, syncopal events. She denies abdominal pain, nausea, vomiting, diarrhea. No fevers or chills. She denies any urinary symptoms. In the ED, ambulatory pulse ox was 84% on room air. Patient is curre ntly requiring 4 L of oxygen via nasal cannula to maintain saturations greater than 92%. WBC 18 K, other labs unremarkable. CXR is negative for acute pulmonary findings. Patient was given nebulizer treatment with improvement in her symptoms. Admission Exam Per Admitting Provider Constitutional: WD/WN, vitals as above Eyes: + conjunctival abnormality (Small amount of drainage noted from each tear duct), + anicteric sclerae and PERRL ENMT: external ear and nose normal, oropharynx normal Respiratory: normal respiratory effort; no respiratory distress Auscultation: + diminished lung sounds Coarse breath sounds bilaterally Cardiovascular: Rate/Rhythm: regular rate and regular rhythm Vessels: normal peripheral pulses Extremities: no edema Gastrointestinal normal bowel sounds, soft, nontender, no hepatosplenomegaly Musculoskeletal: no cyanosis or clubbing, extremities motor strength 5/5 Skin: no rashes, warm and dry Neurologic: PERRL, EOMI, accommodation nl, no face palsy, no dysarthria Psychiatric: A+Ox3, euthymic affect Principal Diagnosis Acute on chronic respiratory failure with hypoxia COPD exacerbation Discharge Exam General- No acute distress Head- atraumatic Eyes- PERRL, EOMI, ENT- oropharynx clear Neck- supple, no JVD Lungs- diminished BS Heart- regular rhythm; no murmur Abdomen- normal bowel sounds, soft, nontender Extremities- no calf tenderness Neuro- alert, oriented x 3; PERRL, EOMI; no facial palsy; no dysarthria Skin- warm & dry Discharge Data Allergies Allergy/AdvReac Type Severity Reaction Status Date / Time Bactrim Allergy Unknown . Verified 11/02/16 09:17 Sulfa (Sulfonamide Allergy Unknown "SULFA = Verified 09/19/18 17:52 Antibiotics) HIVES" sulfamethoxazole Allergy Unknown . Verified 09/19/18 17:52 trimethoprim Allergy Unknown . Verified 09/19/18 17:52 Consultations 09/19/18 18:28 ED Decision to Admit Stat 09/19/18 20:21 Consult Case Management - Discharge Planning Routine Ordered Studies XR chest 2V routine CLINICAL HISTORY: 68 years-old Female presenting with hypoxia. TECHNIQUE: PA and lateral views of the chest were obtained. COMPARISON: 09/19/2018. FINDINGS: Atherosclerosis of the aortic arch. Cardiac silhouette enlarged. Slight increased prominence of the bilateral elicia, likely vascular. Persistent elevation of the right hemidiaphragm with right basilar opacity. Osteopenia may be present. Degenerative changes of the spine. Several overlying external leads noted. IMPRESSION: 1. Cardiomegaly with increasing hilar prominence, likely indicating developing volume overload. 2. Persistent right basilar atelectasis. Electronically signed by: Christopher Sparrow M.D. 09/20/2018 9:03 AM Dictated: 09/20/18 09 Transcribed: 09/20/18900 TWO VIEW CHEST CLINICAL HISTORY: Dyspnea. FINDINGS: PA and lateral chest radiographs are compared to study dated 08/01/2018 and correlated with chest CT dated 07/13/2015. The PA view is degraded by patient rotation. The heart is enlarged and there is atherosclerotic calcification of the thoracic aorta. The pulmonary vasculature is noncongested. There is chronic elevation of the right hemidiaphragm with associated right basilar atelectasis. No airspace consolidation or pleural effusion is identified. There is no pneumothorax. The skeletal structures are osteopenic. Degenerative change is noted throughout the thoracic spine. There are numerous healed left-sided rib fractures. IMPRESSION: Cardiomegaly with no acute cardiopulmonary abnormality. Electronically signed by: Rufus Soto M.D. 09/19/2018 5:27 PM Dictated: 09/19/18 1725 Transcribed: 09/19/181724 Hospital Course (1) Acute on chronic respiratory failure with hypoxia: (2) COPD exacerbation: Present on admission with cough and SOB CXR showed cardiomegaly with increasing hilar prominence, likely indicating developing volume overload. Influenza PCR negative WBC trending down Continue doxycycline and prednisone Saturated above 91% on RA Continue home oxygen supplement at night and with exertion Continue nebulizer On mucomyst BID (3) Diabetes mellitus: Hgb A1c 7.6 09/16/18 Hold oral agents and utilize NovoLog per protocol while hospitalized Monitor blood sugars closely while on steroids (4) HTN (hypertension): Continue lisinopril will resume Lasix BP stable (5) Dyslipidemia: Continue statin (6) Gout: Continue allopurinol (7) Depression: Continue sertraline, trazodone, Depakote Morbid Obesity Diet and weight lost (8) DVT prophylaxis: SQ Lovenox CODE STATUS FULL CODE Disposition Possible discharge today Total Time Total Time Spent Total Time Spent (In Minutes): 35 minutes Total Time Includes: Examination of the Patient, Discharge Planning, Medication Reconciliation, Communication With Other Providers and Other Discharge Plan Discharge Items Patient Disposition: Home - Self-Care Reason For Visit: COPD EXACERBATION Discharge Diagnosis: Acute on chronic respiratory failure with hypoxia COPD exacerbation Discharge Goals: Decrease discomfort, Improve disease control, Improve function and Increase independence Activity: Resume your previous activity Activity Comment: As tolerated Non-emergency contact: Primary Care Provider Call non-emergency contact if: you have any medication questions and your temperature is above 101 Follow-up/Referrals: Regulo Patel DO [Primary Care Provider] - Diet: Carb Consistent or DM2 Addtl Provider Instructions: Please call to schedule a follow up appointment with your primary care provider in 1 week Complete course of antibiotic Complete prednisone taper course Continue home oxygen supplement at rest and on exertion fall precaution Monitor your blood sugar Prescriptions: New ipratropium-albuterol 0.5 mg-3 mg(2.5 mg base)/3 mL Solution For Nebulization 3 ml NEB Q6H PRN (Reason: SOB/Wheezing) 30 Days Qty: 90 RF: 0 prednisone 20 mg tablet 20 mg PO DAILY Qty: 5 RF: 0 guaifenesin 200 mg tablet 200 mg PO Q8H PRN (Reason: cough) 5 Days Qty: 15 RF: 0 Continued furosemide 40 mg tablet 40 mg PO DAILY RF: 0 metformin 500 mg tablet 1,000 mg PO BID RF: 0 trazodone 50 mg tablet 100 mg PO HS RF: 0 divalproex 500 mg tablet extended release 24 hr 1,000 mg PO HS RF: 0 sertraline 25 mg Tablet 25 mg PO DAILY RF: 0 montelukast 10 mg tablet 10 mg PO DAILY PRN (Reason: Allergic Reaction) RF: 0 allopurinol 300 mg tablet 300 mg PO BID RF: 0 aspirin 81 mg Tablet,Delayed Release (Dr/Ec) 81 mg PO QAM RF: 0 lisinopril 5 mg tablet 5 mg PO DAILY RF: 0 rosuvastatin 20 mg tablet 20 mg PO HS RF: 0 Toviaz 8 mg tablet extended release 24 hr 8 mg PO DAILY RF: 0 Stand-Alone Forms: Counts Include [facility] Discharge Orders: Discharge Order (Routine); Ordered 09/22/18 Ordered By: Aristides Barone Admission Data Admit Date/Time: 09/19/18 19:17 Attending Provider: Aristides Barone Admit Provider: Thad Salcido Primary Care Provider: Regulo Patel V Other Providers: Thad Salcido Service: Telemetry Medical Other Interventions: Discharge Summary Assessment (RN) Last Done: 09/22/18 18:20 DC Date/Time DO NOT enter until pt leaves facility: 09/22/18 19:47
== END 2018-09-22 19:47 | disposition home or self-care (01) | DRG 190 ==
LOC: ED 15:26 → 2N 19:17